=== PATIENT | female | born 1975 | race Two or more races ===

== ENCOUNTER 2021-05-16 11:20 | Emergency (ER) | payer SELFPAY ==
[2021-05-16 11:55] VITALS: BP 154/87; PULSE 76; RESP 18; TEMP 36.2; O2SAT 100; BMI 33.6
--- NOTE | 2021-05-16 12:25 | ED_ITS ---
HPI - General Adult General Chief complaint: General Medical Stated complaint: groin pain Time Seen by Provider: 05/16/21 12:25 Source: patient Mode of arrival: ambulatory Limitations: no limitations History of Present Illness HPI narrative: 46-year-old female presents to the ER with left sided groin pain that started last night at 10pm. She reports getting ready for bed when the pain started. Described as throbbing and aching. None at rest, only with movement or palpation. Denies trauma or injury. She had relief when she held the area tight and supported it. Denies urinary symptoms or abd pain. Reports history of similar pains in the past, dating back to childhood but never lasted long, were only brief episodes. MD complaint: Left-sided groin pain Onset (ago): hour(s) Location: left and lower extremity Radiation: non-radiation Severity: moderate Severity scale (1-10): 6 Quality: aching Pain Consistency: intermittent Relieving factors: immobilization Exacerbating factors: movement Associated symptoms: denies other symptoms Treatments prior to arrival: none Related Data Previous Rx's Medication Instructions Recorded cyclobenzaprine 10 mg tablet 10 mg PO TID PRN #14 tab 05/16/21 lidocaine 5 % topical patch 1 patch TOPICAL DAILY #15 ea 05/16/21 Allergies Allergy/AdvReac Type Severity Reaction Status Date / Time loratadine [From Claritin] AdvReac Palpitation Verified 05/16/21 11:54 s Review of Systems Review of Systems: Constitutional: No Fever, No Chills Cardiovascular: No Chest Pain, No SOB Gastrointestinal: No Nausea, No Vomiting, No Diarrhea, No abdominal Pain Genitourinary: No Dysuria, No Urinary Frequency, No Hematuria Musculoskeletal: No joint pain, +Myalgias Skin: No Skin Lesions, No rash Neuro: No Weakness, No Numbness Psych: No Anxiety/Panic, No Depression Heme/Lymph: No Bruising, No Lymphadenopathy PMFSH Past Medical History Medical History (Updated 05/16/21 @ 12:59 by JUJU Romero) Atrial fibrillation Diabetes mellitus, type 2 Pulmonary embolism Social History Social History Advance Directives: No Advance Directives Information Provided: No Physical Exam ED Vital Signs: Vital Signs - 24 hr 05/16/21 11:55 Temperature 97.1 F Pulse Rate 76 Respiratory Rate 18 Blood Pressure 154/87 H Pulse Oximetry 100 BMI result Body Mass Index 33.6 Appearance: Alert. Oriented X3. No acute distress. HEENT: normal inspection CVS: Normal heart rate and rhythm. Pulses normal. Respiratory: No respiratory distress. Skin: Skin warm and dry. Normal skin color. Normal skin turgor. No rashes. Extremities: normal inspection bilateral LE. Left inguinal area with soft tissue tenderness and spasm proximally. no ecchymosis or deformity. no skin changes. 2+ femoral pulse. no inguinal LAD. Pelvis is stable, nontender hip. Normal active and passive ROM of the left hip. Neuro: Oriented X 3. No motor deficit. No sensory deficit. steady gait Course Course Course Narrative: 46 y/o female presenting with left groin pain since last night, atraumatic, hx similar episodes. Exam is consistent with muscle strain and spasm with palpable tender muscle group proximally. Steady gait and no other conernining symptoms. Will give trial of muscle relaxers, discussed gentle massage and stretching. She will follow up with her PCP or return to the ER if worsening symptoms. Medical Decision Making Lab Data Labs: Lab Results 05/16/21 Range/Units 12:16 Urine Color YELLOW Urine Appearance HAZY Urine pH 7.5 (5.0-8.0) Ur Specific [place] 1.015 (1.005-1.025) Urine Protein NEG (NEG-TRACE) MG/DL Urine Glucose (UA) NEG (NEG) MG/DL Urine Ketones NEG (NEG) MG/DL Urine Blood NEG (NEG) Urine Nitrite NEG (NEG) Ur Leukocyte Esterase NEG (NEG) Discharge Plan Discharge Clinical Impression: Groin pain Patient Disposition: Home, Self-Care Instructions: Groin Pain (ED) Additional Instructions: Your pain is most likely due to muscle strain and spasm. Rest, no strenuous activity. Recommend gentle massage and stretching. Use ice several times per day for 20 minutes at a time for the next 48 hours and then change to heat. Take medications as prescribed to help with pain and discomfort. Follow up with your Primary Care Doctor this week. If your pain worsens, if you develop new numbness, tingling, weakness, or any other concerning symptom call 911 or come back to the ER right away for evaluation. Prescriptions: New cyclobenzaprine 10 mg tablet 10 mg PO TID PRN (Reason: muscle spasm) Qty: 14 0RF lidocaine 5 % adhesive patch,medicated 1 patch topical DAILY Qty: 15 0RF Rx Instructions: leave on most painful area for up to 12 hrs Interventions: ED Discharge Assessment Last Done: 05/16/21 13:12 Discharge Date/Time: 05/16/21 13:12
[2021-05-16 12:31] LABS: Appearance Urine HAZY; Color Urine YELLOW; Glucose Urine UA NEG (NEG); Leukocyte Esterase Urine NEG (NEG); Nitrite Urine NEG (NEG); PH 7.5 (5.0-8.0); Specific Gravity - Urine 1.015 (1.005-1.025); Urine Blood NEG (NEG); Urine Ketones NEG (NEG); Urine Protein NEG (NEG-TRACE)
== END 2021-05-16 13:12 | disposition home or self-care (01) ==
LOC: HO.ED 13:09
PROVIDERS: Emergency Provider Emergency Medicine; PCP Internal Medicine
DX: R10.32 Left lower quadrant pain (principal); I48.91 Unspecified atrial fibrillation; E11.9 Type 2 diabetes mellitus without complications; Z86.711 Personal history of pulmonary embolism
CPT/HCPCS: 81003; 99283; 99284

== ENCOUNTER 2021-05-16 18:19 | Emergency (ER) | payer SELFPAY ==
--- NOTE | ~2021-05-16 | XR_ITS ---
EXAMINATION: XR HIP, LEFT CLINICAL INFORMATION: Left hip/thigh pain. Evaluate for fracture. COMPARISON: None. TECHNIQUE: Two views of the left hip. FINDINGS: No acute fractures or malalignment. Femoral heads are well-seated in their respective acetabula. No significant degenerative changes. Nonobstructive bowel gas pattern. XR/XR hip LT w PEL1V IMPRESSION: No acute fractures or malalignment.
--- NOTE | ~2021-05-16 | US_ITS ---
EXAMINATION: US VENOUS ULTRASOUND WITH DOPPLER LOWER EXTREMITY, LEFT CLINICAL INFORMATION: Left lower extremity pain. On anticoagulants. COMPARISON: None. TECHNIQUE: Ultrasound of the deep veins is performed from the hip to the calf with compression sonography and color and pulse Doppler assessment. Spectral analysis with color-flow imaging is performed. FINDINGS: There is normal venous compression and respiratory variation and augmented flow. The visualized common femoral vein, superficial femoral vein, profunda femoral vein, popliteal vein, and the trifurcation region shows no evidence of deep venous thrombosis. There is no significant popliteal fossa cyst. If the patient's symptoms persist, followup ultrasound in 5 days 7 days might be of value to exclude proximal propagation from a non-visualized calf vein. US/US venous duplex LE LT IMPRESSION: No DVT demonstrated in the left lower extremity.
[2021-05-16 18:23] VITALS: BP 185/92; PULSE 99; RESP 18; TEMP 36.5; O2SAT 96; BMI 33.6
--- NOTE | 2021-05-16 20:53 | ED.GENADULT ---
HPI - General Adult General Chief complaint: General Medical Stated complaint: severe groin pain was here today Time Seen by Provider: 05/16/21 19:19 Source: patient Mode of arrival: ambulatory Limitations: no limitations History of Present Illness HPI narrative: 47-year-old female presents to ED for left hip/thigh pain for couple days. Patient was seen this morning is given pain medication return to ED could she still having the pain. Denies any trauma to left lower extremity, swelling, redness, or over exertion. Patient denies lifting any weights, or running any miles. Patient does not exercise. Patient denies any abdominal pain, vaginal bleeding, vaginal discharge, or flank pain. Related Data Previous Rx's Medication Instructions Recorded cyclobenzaprine 10 mg tablet 10 mg PO TID PRN #14 tab 05/16/21 lidocaine 5 % topical patch 1 patch TOPICAL DAILY #15 ea 05/16/21 naproxen 500 mg tablet 500 mg PO BID PRN 10 Days #20 tab 05/16/21 Allergies Allergy/AdvReac Type Severity Reaction Status Date / Time loratadine [From Claritin] AdvReac Palpitation Verified 05/16/21 11:54 s Review of Systems Review of Systems: Left hip left upper thigh pain Yes all other systems are reviewed and are negative [facility] Past Medical History Medical History (Updated 05/16/21 @ 21:28 by JUJU Santana) Atrial fibrillation Diabetes mellitus, type 2 Pulmonary embolism Social History Social History Advance Directives: No Advance Directives Information Provided: No Physical Exam ED Vital Signs: Vital Signs - 24 hr 05/16/21 18:23 Temperature 97.7 F Pulse Rate 99 Respiratory Rate 18 Blood Pressure 185/92 H Pulse Oximetry 96 BMI result Body Mass Index 33.6 Const General: cooperative, healthy appearing, comfortable, no acute distress, well developed, alert, awake and Physically active Orientation/consciousness: patient oriented x3 HENMT Head: Yes normal to inspection, Yes No palpable skull fracture present, Yes normocephalic and Yes atraumatic Eyes General: appearance normal, both eyes and all related structures Neck Neck: Yes normal visual inspection, Yes full ROM, Yes no lymphadenopathy, Yes no meningeal signs, Yes trachea midline, Yes supple, No anterior neck swelling and No tender Chest Chest palpation & inspection: normal inspection of the chest and normal palpation of entire chest wall Resp Effort & Inspection: normal respiratory effort and able to speak in complete sentences Auscultation: clear to auscultation bilaterally Cardio Jugular venous distension: no JVD Heart sounds: S1 normal heart sound present and S2 normal heart sound present GI Inspection: Yes normal to inspection and No abdominal wall ecchymosis Palpation (GI): Soft to palpation, not firm, nontender, no guarding and not rigid General: No CVA tenderness and Yes no CVA tenderness Back/Spine/Pelvis Back: no CVA tenderness, No CVA tenderness and No back tenderness Skin General skin exam: no rashes or lesions noted and elasticity normal Neuro General: patient oriented x3, gait normal, no meningeal signs and CN's II-XI intact bilaterally Cranial nerves: Yes CN's II-XII intact bilaterally Extrem Upper/lower leg/hip images: 1. Positive for tenderness on palpation. Negative for erythema, palpable mass, ecchymosis, or crepitus. Femoral and pedal pulses intact. Motor/nerve/vascular exam intact of lower extremity intact Psych Appearance: grossly normal, well kempt and not disheveled Course Course Course Narrative: Due to sign tenderness on palpation was sent for ultrasound to make sure does need DVT. Was sent for x-rays rule out fracture. Reevaluation(s) Reevaluation #1: Images came back negative for fracture or DVT. Not suspecting rhabdomyolysis. Patient did not do any over exertion such as running a marathon, lifting weights, or treadmill running. Patient does not exercise and has no risk factors for rhabdomyolysis. Patient informed to continue taking meds she was prescribed earlier visit today in the ER Time: 21:26 Medical Decision Making MDM Narrative Medical decision making narrative: Thigh pain. Muscle pain Discharge Plan Discharge Clinical Impression: Acute pain of left thigh Patient Disposition: Home, Self-Care Instructions: Musculoskeletal Pain (ED) Additional Instructions: Return to ED for worsening pain, thigh/leg swelling, redness, fever, chills, calf pain, chest pain, shortness of breath, or any other concerning symptoms. Please follow-up primary care provider Prescriptions: New naproxen 500 mg tablet 500 mg PO BID PRN (Reason: pain) 10 Days Qty: 20 0RF No Action cyclobenzaprine 10 mg tablet 10 mg PO TID PRN (Reason: muscle spasm) Qty: 14 0RF lidocaine 5 % adhesive patch,medicated 1 patch topical DAILY Qty: 15 0RF Rx Instructions: leave on most painful area for up to 12 hrs Interventions: ED Discharge Assessment Last Done: 05/16/21 21:54 Discharge Date/Time: 05/16/21 21:55 Print Language: Occitan
== END 2021-05-16 21:55 | disposition home or self-care (01) ==
PROVIDERS: Emergency Provider Internal Medicine; PCP Internal Medicine
DX: M79.652 Pain in left thigh (principal); E11.9 Type 2 diabetes mellitus without complications; I48.91 Unspecified atrial fibrillation; Z86.711 Personal history of pulmonary embolism
CPT/HCPCS: 73502; 93971; 99283; 99284

== ENCOUNTER 2023-10-26 07:19 | Outpatient (AMB) | payer OTHER, SELFPAY ==
--- NOTE | 2023-10-26 07:34 | MHC.OFFVIS ---
Vital Signs 10/26/23 07:49 Height 5 ft 3 in Weight 203 lb BMI 36.0 BP 141/64 H Blood Pressure Location Lt brachial Position Sitting Pulse 66 Intake Visit Reasons: GERD/ +H pylori Intake Note: Patient new consult for GERD and + H-pylori. Patient cc: abdominal pain with bloating, nauseas, GERD with burning sensation, no possessing the food, constipation. Patient is established with [facility] and have a Colonoscopy s/c for January ??? Acquisition Consultant Required: No Accompanied by: Self / Same As Patient Allergies loratadine [From Claritin] Adverse Reaction (Verified 10/26/23 07:30) Palpitations Medication List - Last Reconciled 10/26/23 by Minal Hansen MD apixaban (Eliquis) 5 mg PO BID atorvastatin 20 mg PO DAILY omeprazole 40 mg PO DAILY sucralfate (Carafate) 1 g PO QIDACHS valsartan 80 mg PO DAILY HPI HPI GERD/ +H pylori: Details: Initial GI clinic visit for this 57 YF with GERD. asthma, DM, HTN, chronic AF (On Apixaban), Migraine HAs and sleep apnea referred by Dr Villa ([facility], [facility]) for evaluation of GERD LABS IN [facility] : Labs from [facility] were reviewed 10/30/22 H Pylori antigen was positive 12/29/22 H Pylori antigen was negative post treatment IMAGING STUDIES: 12/24/22 BARIUM SWALLOW SHOWED AT [facility]: No laryngeal penetration or tracheal aspiration, normal oral and pharyngeal phase. Mild esophageal dysmotility with tertiary contractions and proximal escape of the ingested bolus. A 13 mm barium tablet passes easily into the stomach. Mild unprovoked gastroesophageal reflux to the mid esophagus. TODAY'S VISIT: Patient complains of intermittent upper abdominal pain/bad discomfort with burning all over the abdomen. Pain is daily and can have pain after eating or drinking water or on an empty stomach Symptoms are worse with coffee, fried foods, bread and chocolate. Sticking to one food item at a time - berries and eggs Gets bloated and complains of early satiety. feels bloated the entire day if she has coffee Complains of chronic constipation - went to [facility] 10/2022 - had a mild blockage Placed on Senna, metamucil Goes to the bathroom every 2-3 days associated with straining and incompete evacuation. Constipation started after she had H Pylori infection. Repeat H Pylori was added and pt unable to stop Omeprazole for 2 weeks Carafate has helped a little bit with the burning sensation. Denies heartburn or regurgitation Sometimes she has hoarseness and feels she needs to cough. Pt complains of frequent nausea and denies symptoms of dysphagia, vomiting, change in appetite. Initially weighed > 300 lbs and was able to loose by going on a keto diet. Was able to discontinue diabetic medications Gained 13 lbs over the last year and was able to loose 6-7 lbs Has been walking a lot and goes to the Gym 4 times a week Denies recent diarrhea, black stools or rectal bleeding. Patient denies pulmonary problems, loud snoring or sleep apnea Denies problems with anesthesia in the past. On chronic anticoagulation for AF. Pt at [facility] Lives with - has 3 kids Patient denies known family history of colon cancer or other GI malignancies. Mom had polyps and son had bleeding ulcers PAST EGD/COLONOSCOPY: Never had EGD or colon PAST GI HISTORY BY REVIEW OF MEDICAL RECORDS: Pt seen by PCP in Jul, 2023 for 3 month history of abdominal bloating, burning with bulge 11/09/2022 patient was diagnosed with Helicobacter pylori infection, treated and follow-up stool test was negative. Patient was seen by GI and at [facility] scheduled for a colonoscopy in 02/10/2024 Pt is taking Omeprazole 80 mg daily for GERD without improvement in symptoms Pt is on Eliquis for chronic AF PFSH Medical History (Updated 10/26/23 @ 08:28 by Minal Hansen MD) Pulmonary embolism Diabetes mellitus, type 2 Atrial fibrillation Surgical History Hx of tubal ligation Social History (Updated 10/26/23 @ 07:36 by Ada Cano) Household Members: Family Alcohol intake: never Patient Tobacco Use Status: Never used Tobacco Review of Systems Const Denies fever(s), Reports headache(s) and Denies weight loss Eyes Denies eye discharge and Denies irritation ENT Reports Normal hearing present, Denies dysphagia, Denies dizziness, Reports headache(s) and Reports hoarseness Card Denies chest pain, Denies leg edema and Denies dyspnea on exertion Resp Denies cough, Denies dyspnea on exertion and Denies wheezing GI Reports abdominal pain, Reports bloating, Denies change in bowel habits, Reports constipation, Denies dysphagia, Reports early satiety, Reports heartburn, Reports nausea and Reports other (loss of appetite) Denies difficulty voiding, Denies dysuria and Reports other (LMP 10/2022) Musc Denies back pain and Denies arthralgias Skin/Breast Denies pruritus, Denies rash and Denies jaundice Neuro Reports Normal hearing present, Denies Abnormal speech present, Denies dizziness, Reports headache(s) and Denies seizure-like activity Psych Reports anxiety, Reports depression and Denies panic attacks Endo Denies cold intolerance, Denies flushing and Denies heat intolerance Wilbert/Lymph Denies easy bleeding and Denies easy bruising Aller/Immun Denies wheezing Physical Exam Vital Signs: Last Vital Signs Pulse 66 10/26/23 07:49 BP 141/64 H 10/26/23 07:49 BMI result Body Mass Index 36.0 Const General: healthy appearing and no acute distress Nutritional Appearance: obese Orientation/consciousness: patient oriented x3 Limitations: no limitations HEENT Head: Yes normal to inspection Ears: hearing grossly normal bilaterally Eyes Sclerae: sclerae normal Pupils: Equal, round and reactive pupils present Neck Neck: Yes normal visual inspection Chest Chest palpation & inspection: normal inspection of the chest Resp Effort & Inspection: normal respiratory effort Auscultation: clear to auscultation bilaterally Cardio Palpation: normal PMI Rate: regular rate Rhythm: regular rhythm Heart sounds: S1 normal heart sound present, S2 normal heart sound present and no murmurs GI Palpation (GI): Soft to palpation, nontender, No hepatosplenomegaly present and Other GI palpation findings present (palpable stool in LLQ) Auscultation: normal bowel sounds Rectal Exam - Female: deferred Skin General skin exam: no rashes or lesions noted Neuro General: patient oriented x3, gait normal and moves all extremities Cranial nerves: Yes Equal, round and reactive pupils present and Yes Normal hearing present Speech: No Abnormal speech present Psych Appearance: grossly normal Mental Status: mental status grossly normal Assessment & Plan Assessment & Plan (1) Upper abdominal pain: Code(s): R10.10 - Upper abdominal pain, unspecified Category: Medical (2) Early satiety: Code(s): R68.81 - Early satiety Category: Medical (3) Chronic constipation: Code(s): K59.09 - Other constipation Category: Medical Plan GI clinic visit for this 57 YF with GERD. asthma, DM, HTN, chronic AF (On Apixaban), Migraine HAs and sleep apnea referred by Dr Villa ([facility], [facility]) for evaluation of GERD and to schedule a screening colonoscopy Pt complains of abdominal pain, early satiety, bloating, constipation and recent weight gain. Symptoms are likely due to gastroparesis (was diabetic for 10-11 years prior to loosing weight) and slow transit constipation/constipation predominant IBS. Pt may have small bowel bacterial overgrowth or celiac disease. She was advised to schedule a gastric emptying study, an upper endoscopy and a colonoscopy. Start Linzess 145 mcg daily for constipation FU in 6 weeks Orders: Orders NM gastric emptying study 10/26/23 K59.09 - Other constipation, R10.10 - Upper abdominal pain, unspecified, R68.81 - Early satiety XR KUB 10/27/23 K59.09 - Other constipation Blood Urea Nitrogen 10/27/23 K59.09 - Other constipation, R10.10 - Upper abdominal pain, unspecified, R68.81 - Early satiety TSH reflex Free T4 10/27/23 K59.09 - Other constipation, R10.10 - Upper abdominal pain, unspecified, R68.81 - Early satiety Creatinine 10/27/23 K59.09 - Other constipation, R10.10 - Upper abdominal pain, unspecified, R68.81 - Early satiety Vitamin D 25-OH Total 10/27/23 K59.09 - Other constipation, R10.10 - Upper abdominal pain, unspecified, R68.81 - Early satiety Immunoglobulin A 10/27/23 K59.09 - Other constipation, R10.10 - Upper abdominal pain, unspecified, R68.81 - Early satiety Lipase 10/27/23 K59.09 - Other constipation, R10.10 - Upper abdominal pain, unspecified, R68.81 - Early satiety Transglutaminase IgA 10/27/23 K59.09 - Other constipation, R10.10 - Upper abdominal pain, unspecified, R68.81 - Early satiety Transglutaminase Ab IgG 10/27/23 K59.09 - Other constipation, R10.10 - Upper abdominal pain, unspecified, R68.81 - Early satiety Medications: New linaclotide (Linzess) 145 mcg PO QAM 30 caps 3RF 30 days K59.09 - Other constipation Coding Level of Care Code New Pt Level 4 (75960) Diagnoses Upper abdominal pain R10.10 Early satiety R68.81 Chronic constipation K59.09 Time Spent (min) 35
[2023-10-26 07:49] VITALS: BP 141/64; PULSE 66; BMI 36.0
== END 2023-10-26 08:57 | disposition home or self-care (01) ==
PROVIDERS: PCP Internal Medicine; Visit Provider Internal Medicine Gastroenterology
DX: R10.10 Upper abdominal pain, unspecified (principal); R68.81 Early satiety; K59.09 Other constipation
CPT/HCPCS: 99204

== ENCOUNTER → 2023-10-26 07:19 | Outpatient (BNVA) | payer OTHER, SELFPAY | PROVIDERS: PCP Internal Medicine; Visit Provider Internal Medicine Gastroenterology ==

== ENCOUNTER 2023-10-27 06:15 | Outpatient (REF) | payer OTHER, SELFPAY ==
--- NOTE | ~2023-10-27 | XR_ITS ---
EXAMINATION: XR ABDOMEN KUB CLINICAL INDICATION: Rule out obstipation COMPARISON: None available. TECHNIQUE: AP view of the abdomen. FINDINGS: Moderate fecal retention. Air is seen in the rectum. Solid visceral outlines are obscured. No suspicious calcifications. Lung bases are not included. Mild symmetric bilateral inferior SI sclerosis. Sacralization lowest lumbar type vertebral body, spina bifida occulta and degenerative changes XR/XR KUB IMPRESSION: Moderate fecal retention. Electronically signed by: Rafaela Medina MD 11/24/2023 10:00 AM EDT
[2023-10-27 07:52] LABS: Blood Urea Nitrogen 20 mg/dL (9-16); Estimated Glomerular Filt Rate > 60; Lipase 9 U/L (8-78)
[2023-10-27 08:08] LABS: TSH reflex Free T4 1.87 uIU/mL (0.32-4.0)
[2023-10-28 09:38] LABS: Immunoglobulin A 163 mg/dL (47-310)
[2023-10-30 13:03] LABS: Transglutaminase Ab IgG <1.0 U/mL; Transglutaminase IgA <1.0 U/mL
== END 2023-10-27 06:16 | disposition home or self-care (01) ==
LOC: HO.XRAY 06:15
PROVIDERS: PCP Internal Medicine; Visit Provider Internal Medicine Gastroenterology
DX: K59.09 Other constipation (principal); R68.81 Early satiety; R10.10 Upper abdominal pain, unspecified
CPT/HCPCS: 36415; 74018; 82306; 82565; 82784; 83690; 84443; 84520; 86364

== ENCOUNTER 2023-11-17 06:06 | Emergency (ER) | payer OTHER, SELFPAY ==
--- NOTE | ~2023-11-17 | XR_ITS ---
EXAMINATION: XR RIBS, LEFT CLINICAL INFORMATION: Left upper rib pain COMPARISON: None available. TECHNIQUE: A single view of the chest and 3 views of the left ribs were obtained. A metallic BB was placed over the site of pain. FINDINGS: Lungs are clear. A loop recorder is present. No consolidation, pneumothorax, or pleural effusion. The cardiomediastinal silhouette and pulmonary vasculature are normal. Osseous structures are unremarkable. Ribs are intact. No fractures are identified. XR/XR ribs LT min 3V w CXR1V IMPRESSION: Unremarkable examination. Electronically signed by: Marcelo Lowery MD 11/17/2023 10:01 AM EDT
[2023-11-17 06:31] VITALS: BP 167/83; PULSE 71; RESP 19; TEMP 36.7; O2SAT 98
[2023-11-17 06:32] VITALS: BP 167/83; PULSE 71; RESP 19; TEMP 36.7; O2SAT 98; BMI 36.3
--- NOTE | 2023-11-17 06:42 | PC.NURSE ---
Pt ca&ox4, no signs of distress. Pt reports 6/10 left rib pain. Pt reports her hugged her and picked her up last and she heard a pop and since then has been having pain intermittently Tender to palpation. Plan of care ongoing.
--- NOTE | 2023-11-17 08:07 | PC.NURSE ---
pt to xray at this time.
[2023-11-17] MEDS: Cyclobenzaprine HCl 10 MG TABLET PO (08:18)
--- NOTE | 2023-11-17 08:20 | PC.NURSE ---
pt medicated per provider order. effectiveness pending. pt waiting for chest xray results at this time. no sob/wob noted. respirations even/unlabored. plan of care ongoing.
[2023-11-17 08:27] VITALS: BP 146/83; PULSE 69; RESP 16; TEMP 36.3; O2SAT 99
[2023-11-17 08:31] LABS: MANUAL DIFF FLAG NO
[2023-11-17 08:33] LABS: Basophils Percent Auto 0.7 % (0-2); Eosinophils Absolute Auto 0.1 X10*3/uL (0.0-0.4); Eosinophils Percent Auto 2.6 % (0-4); Hematocrit 42.3 % (37.0-47.0); Hemoglobin 14.5 g/dl (12.0-16.0); Imm Gran Abs Auto 0.01 X10*3/uL (0.00-0.03); Imm Gran Pct Auto 0.2 % (0.0-0.4); Lymphocytes Absolute Auto 1.1 X10*3/uL (1.2-4.9); Lymphocytes Percent Auto 19.7 % (20-40); Mean Corpuscular HGB Conc 34.3 g/dl (31.0-35.0); Mean Corpuscular Hemoglobin 29.3 pg (27.0-33.0); Mean Corpuscular Volume 85.5 fL (80.0-98.0); Mean Platelet Volume 9.8 fL (9.4-12.3); Monocytes Absolute Auto 0.3 X10*3/uL (0.1-1.2); Monocytes Percent Auto 4.8 % (2-11); Neutrophils Absolute Auto 3.9 x10*3/uL (2.0-8.3); Platelet Count 261 X10*3/uL (160-400); Red Blood Count 4.95 X10*6/uL (4.20-5.50); Red Cell Distribution Width 11.9 % (11.0-16.0); White Blood Count 5.4 X10*3/uL (4.8-10.8)
[2023-11-17 08:48] LABS: Alanine Aminotransferase 10 U/L (0-31); Albumin Level 4.3 g/dL (3.5-5.0); Alkaline Phosphatase 67 U/L (39-117); Anion Gap 11 (12-20); Aspartate Amino Transferase 20 U/L (5-31); Bilirubin Direct 0.2 mg/dL (0.0-0.5); Bilirubin Total 0.5 mg/dL (0.0-1.0); Blood Urea Nitrogen 20 mg/dL (9-16); Calcium 9.9 mg/dL (8.4-10.2); Carbon Dioxide 26 mmol/L (22-29); Chloride 108 mmol/L (96-108); Creatinine Clr Calc Pharmacy 88.9; Estimated Glomerular Filt Rate > 60; Glucose Random 100 mg/dL (60-115); Lipase 10 U/L (8-78); Potassium 4.4 mmol/L (3.3-5.1); Sodium 141 mmol/L (135-145); Total Protein 7.3 g/dL (6.5-8.0)
--- NOTE | 2023-11-17 10:33 | ED_ITS ---
HPI - General Adult General Chief complaint: General Medical Stated complaint: muscle tear Time Seen by Provider: 11/17/23 07:43 Source: patient, RN notes reviewed and old records reviewed Mode of arrival: ambulatory History of Present Illness ED Provider: Kristen Arredondo PA-C HPI narrative: 48-year-old female with a past medical history of AFib, PE on Eliquis, diabetes, presenting to the ED complaining of intermittent left lower rib pain s/p bear hugging her 5 days ago. States he picked her up and squeeze turn she immediately felt pain to the left lower ribs/LUQ. Denies direct injury, trauma or fall. Reports pain is elicited w/certain positions, stabbing, reproducible. Denies chest pain, shortness of breath, abdominal pain, nausea/vomiting, pedal edema, hematuria, dysuria. Reports some compliance with Eliquis. Related Data Home Medications ?Medication ?Instructions ?Recorded ?Confirmed apixaban 5 mg tablet (Eliquis) 5 mg PO BID 10/26/23 10/26/23 atorvastatin 20 mg tablet 20 mg PO DAILY 10/26/23 10/26/23 omeprazole 40 mg capsule,delayed 40 mg PO DAILY 10/26/23 10/26/23 release sucralfate 1 gram tablet (Carafate) 1 g PO QIDACHS 10/26/23 10/26/23 valsartan 80 mg tablet 80 mg PO DAILY 10/26/23 10/26/23 Previous Rx's ?Medication ?Instructions ?Recorded linaclotide 145 mcg capsule 145 mcg PO QAM 30 days #30 caps 10/26/23 (Linzess) acetaminophen 500 mg tablet 500 mg PO Q6H PRN fever or pain 11/17/23 (Tylenol Extra Strength) #14 tabs cyclobenzaprine 5 mg tablet 5 mg PO Q8H PRN pain (scale score 11/17/23 7-10) 5 days #14 tabs lidocaine 5 % topical patch 1 patch topical DAILY PRN pain #30 11/17/23 (Lidoderm) ea Allergies Allergy/AdvReac Type Severity Reaction Status Date / Time loratadine [From Claritin] AdvReac Palpitation Verified 11/17/23 06:40 s Review of Systems 2 Review of Systems: Constitutional: No Fever, No Chills ENT/Mouth: No Ear Pain, No Nasal Congestion, No sore throat, No Rhinorrhea, No Swallowing Difficulty Cardiovascular: +rib Pain, No SOB Respiratory: No Cough, No Sputum, No Wheezing Gastrointestinal: No Nausea, No Vomiting, No Diarrhea, No Abdominal pain Genitourinary: No Dysuria, No Urinary Frequency, No Hematuria, No Urinary Incontinence/retention, No Flank Pain Musculoskeletal: No joint pain, No Myalgias, No Joint Swelling Skin: No Skin Lesions, No rash Neuro: No Weakness, No Numbness, No Paresthesias Yes all other systems are reviewed and are negative Constitutional: Constitutional: Reports as per [facility] Past Medical History Attestation statement: The following information was validated with the patient. Source: old records reviewed Medical History Pulmonary embolism Diabetes mellitus, type 2 Atrial fibrillation Surgical History Hx of tubal ligation Social History Social History Household Members: Family Alcohol intake: never Patient Tobacco Use Status: Never used Tobacco Smoked in Last 30 Days: No Use of substances other than those prescribed or required for medical reasons: No Advance Directives: No Advance Directives Information Provided: Yes Do you have a plan to hurt others: No Plan Patient : No Physical Exam ED Vital Signs: Vital Signs - 24 hr 11/17/23 06:31 11/17/23 06:32 11/17/23 08:27 Temperature 98.1 F 98.1 F 97.4 F Pulse Rate 71 71 69 Respiratory Rate 19 19 16 Blood Pressure 167/83 H 167/83 H 146/83 H Pulse Oximetry 98 98 99 Oxygen Delivery Method Room Air Room Air Room Air 11/17/23 10:39 Temperature Pulse Rate 78 Respiratory Rate 16 Blood Pressure 140/74 H Pulse Oximetry 98 Oxygen Delivery Method Room Air BMI result Body Mass Index 36.3 Const General: cooperative, healthy appearing and no acute distress Orientation/consciousness: patient oriented x3 Limitations: no limitations HENMT Head: Yes normal to inspection and Yes atraumatic Ears: hearing grossly normal bilaterally General nose exam: Normal external nose present Face and sinus: Yes normal facial exam Eyes General: appearance normal, both eyes and all related structures EOM: EOMs intact bilaterally Neck Neck: Yes normal visual inspection and Yes no meningeal signs Chest Other: No ecchymosis/erythema or flail chest Chest palpation & inspection: normal inspection of the chest, no crepitus and tenderness (Point tenderness to left anterior lateral rib) Resp Effort & Inspection: normal respiratory effort and no respiratory distress Auscultation: clear to auscultation bilaterally, no crackles, no rales, no rhonchi and no wheezes Cardio Rate: regular rate Heart sounds: S1 normal heart sound present and S2 normal heart sound present GI Inspection: Yes normal to inspection Palpation (GI): Soft to palpation, nontender, no guarding and not rigid General: Yes no CVA tenderness Back/Spine/Pelvis Back: no CVA tenderness Skin Rashes: no rashes Wounds: no wounds Neuro General: patient oriented x3, tone normal and no meningeal signs Cranial nerves: Yes CN's II-XII intact bilaterally Gait exam (Neuro): Normal gait present Extrem General: Yes normal to inspection, Yes no pedal edema and Yes no calf tenderness Course Course Course Narrative: -labs reassuring XR ribs LT min 3V w CXR1V IMPRESSION: Unremarkable examination. > patient reports mild symptomatic improvement after p.o. Flexeril given in the ED. - Results discussed with patient including worrisome signs and symptoms and strict return precautions, and when to return to the emergency department. They verbalized understanding and feel safe for discharge at this time. Medications Administered Discontinued Medications Generic Name Dose Route Start Last Admin Trade Name Freq PRN Reason Stop Dose Admin Cyclobenzaprine HCl 10 mg 11/17/23 07:59 11/17/23 08:18 Cyclobenzaprine Hcl 10 Mg Tablet PO 11/17/23 08:00 10 mg ONCE ONE Administration Medical Decision Making Medical Decision Making MDM Narrative: 48-year-old female with a past medical history of AFib, PE on Eliquis, diabetes, presenting to the ED complaining of intermittent left lower rib pain s/p bear hugging her 5 days ago. On exam vital signs stable, NAD, nontoxic appearing, point tenderness to left lower anterior lateral ribs reproducing subjective complaint. No evidence of trauma. Abdomen soft and nontender. Concern for costochondritis vs rib fracture vs MSK pain/strain. Lower suspicion for pancreatitis, splenic injury, renal stone, PE as patient is anticoagulated. Symptoms atypical for ACS Plan: labs, x-ray, pain control Please refer to course for remaining clinical decision making, interpretation of labs/imaging results, and discussions with consultants and/or family members. Differential Diagnosis Differential Diagnoses: The differential diagnosis associated with the presentation includes As above Admission/Observation Consideration of admission/observation: Escalation of care including admission/observation considered Lab Data MDM Lab Attestation statement: I reviewed the patient's lab results. 11/17/23 08:24 11/17/23 08:24 Labs: Lab Results 11/17/23 Range/Units 08:24 WBC 5.4 (4.8-10.8) X10*3/uL RBC 4.95 (4.20-5.50) X10*6/uL Hgb 14.5 (12.0-16.0) g/dl Hct 42.3 (37.0-47.0) % MCV 85.5 (80.0-98.0) fL MCH 29.3 (27.0-33.0) pg MCHC 34.3 (31.0-35.0) g/dl RDW 11.9 (11.0-16.0) % Plt Count 261 (160-400) X10*3/uL MPV 9.8 (9.4-12.3) fL Immature Gran % (Auto) 0.2 (0.0-0.4) % Neut % (Auto) 72.0 (45-73) % Lymph % (Auto) 19.7 L (20-40) % [place] % (Auto) 4.8 (2-11) % Eos % (Auto) 2.6 (0-4) % Baso % (Auto) 0.7 (0-2) % Lymph # (Auto) 1.1 L (1.2-4.9) X10*3/uL [place] # (Auto) 0.3 (0.1-1.2) X10*3/uL Eos # (Auto) 0.1 (0.0-0.4) X10*3/uL Baso # (Auto) 0.0 (0.0-0.2) X10*3/uL Abs Immat Gran (auto) 0.01 (0.00-0.03) X10*3/uL Absolute Neuts (auto) 3.9 (2.0-8.3) x10*3/uL Absolute Nucleated RBC 0.000 (0.0-0.012) X10*3/uL Nucleated RBC % (auto) 0.0 (0.0-0.2) /100WBC Sodium 141 (135-145) mmol/L Potassium 4.4 (3.3-5.1) mmol/L Chloride 108 (96-108) mmol/L Carbon Dioxide 26 (22-29) mmol/L Anion Gap 11 L (12-20) BUN 20 H (9-16) mg/dL Creatinine 0.82 (0.5-1.4) mg/dL Estim Creat Clear Calc 88.9 Estimated GFR > 60 Random Glucose 100 (60-115) mg/dL Calcium 9.9 (8.4-10.2) mg/dL Total Bilirubin 0.5 (0.0-1.0) mg/dL Direct Bilirubin 0.2 (0.0-0.5) mg/dL AST 20 (5-31) U/L ALT 10 (0-31) U/L Alkaline Phosphatase 67 (39-117) U/L Total Protein 7.3 (6.5-8.0) g/dL Albumin 4.3 (3.5-5.0) g/dL Lipase 10 (8-78) U/L Independent Interpretation I performed an independent interpretation of an: Plain X-Ray Radiology Impression Discussion of test interpretation with radiology: I have reviewed the radiologist's reading. External Record Review External record reviewed: Inpatient record, Office record, Outpatient record, Prior outpatient labs, Prior outpatient radiology, Primary care record and Outside ED record Tests considered The following testing was considered but not selected: As above Prescription Management I considered prescription management with: Pain Medication Discharge Plan Discharge Clinical Impression: Rib pain on left side Patient Disposition: Home, Self-Care Instructions: Chest Pain (DC) Additional Instructions: Your blood work and x-ray were reassuring Your pain is likely musculoskeletal Flexeril is a muscle relaxer, take at night as it makes you drowsy, do not drive, drink alcohol, or operate machinery while taking it Lidoderm patches are numbing patches, apply to painful area In addition take Tylenol at home If symptoms persist or worsen, pain becomes unbearable, you developed urinary retention or incontinence, or weakness return to the ED Prescriptions: New acetaminophen [Tylenol Extra Strength] 500 mg tablet 500 mg PO Q6H PRN (Reason: fever or pain) Qty: 14 0RF lidocaine [Lidoderm] 5 % adhesive patch,medicated 1 patch topical DAILY MDD remove after 12 hours PRN (Reason: pain) Qty: 30 0RF Rx Instructions: leave on most painful area for up to 12 hrs cyclobenzaprine 5 mg tablet 5 mg PO Q8H PRN (Reason: pain (scale score 7-10)) 5 Days Qty: 14 0RF No Action Eliquis 5 mg tablet 5 mg PO BID valsartan 80 mg tablet 80 mg PO DAILY atorvastatin 20 mg tablet 20 mg PO DAILY omeprazole 40 mg capsule,delayed release(DR/EC) 40 mg PO DAILY sucralfate [Carafate] 1 gram tablet 1 g PO QIDACHS Linzess 145 mcg capsule 145 mcg PO QAM 30 Days Qty: 30 3RF Referrals: Brenda Dubois MD [Primary Care Provider] - 5 days Print Language: Sri Lankan
[2023-11-17 10:39] VITALS: BP 140/74; PULSE 78; RESP 16; O2SAT 98
[2023-11-17 10:56] VITALS: BP 140/74; PULSE 78; RESP 16; TEMP 36.8; O2SAT 98
== END 2023-11-17 10:57 | disposition home or self-care (01) ==
PROVIDERS: Physician Assistant; Emergency Provider Emergency Medicine Emergency Medical Services; PCP Student in an Organized Health Care Education/Training Program
DX: R07.81 Pleurodynia (principal); Z79.899 Other long term (current) drug therapy
CPT/HCPCS: 36415; 71101; 80048; 80076; 83690; 85025; 99283; 99284

== ENCOUNTER → 2023-12-15 07:51 | Outpatient (REF) | payer OTHER, SELFPAY ==
--- NOTE | ~2023-12-15 | NM_ITS ---
EXAMINATION: RADIONUCLIDE SOLID FOOD GASTRIC EMPTYING 4-HOUR STUDY CLINICAL INFORMATION: Upper abdominal pain. COMPARISON: No previous gastric emptying study is available for comparison. TECHNIQUE: A standard meal consisting of 4 oz of Egg Beaters brand equivalent tagged with 900 microcuries Tc-99m Sulfur Colloid, 8 oz water and 2 slices of toast with jelly was administered orally to the patient. Images were obtained using a dual head gamma camera in the anterior and posterior projections over of the stomach immediately post ingestion and at hourly intervals up to 4 hours post ingestion. The anterior and posterior counts at each time interval were averaged using the geometric mean and expressed as percentage of the immediate post ingestion counts. FINDINGS: There is good visualization of activity in the stomach immediately post ingestion. As the study progresses, there is good clearance of activity from the stomach and visualization of progressively increasing small bowel activity. By the end of the study, there is almost no retention noted in the stomach. Retention in the stomach at each time interval was: 1 hour 83% (normal 37%-90%) 2 hours 25% (normal 30%-60%) 3 hours 5% 4 hours 2% (normal 0%-10%) NM/NM gastric emptying study IMPRESSION: Normal 4-hour solid food gastric emptying study. Gastric emptying study grading per JNMT Consensus Recommendations in 2008: https://tech.snmjournals.org/content/36//44 Grade 1 (mild retention): 11-20% at 4 hours Grade 2 (moderate retention): 21-35% at 4 hours Grade 3 (severe retention): 36-50% at 4 hours Grade 4 (very severe retention): >50% retention at 4 hours Electronically signed by: Mina Streeter MD 12/16/2023 09:30 AM EDT
== END ==
LOC: HO.NUCMED 07:51
PROVIDERS: PCP Student in an Organized Health Care Education/Training Program; Visit Provider Internal Medicine Gastroenterology
DX: R10.10 Upper abdominal pain, unspecified (principal); R68.81 Early satiety; K59.09 Other constipation
CPT/HCPCS: 78264; A9541

== ENCOUNTER 2024-04-06 07:03 | Outpatient (REF) | payer OTHER, SELFPAY ==
--- NOTE | ~2024-04-06 | XR_ITS ---
CLINICAL HISTORY: K59.09 - Other constipation 1 view abdomen Comparison: CR/SR - XR KUB - 10/27/23 07:06 EDT Findings: No pneumoperitoneum or pneumatosis. No abnormal calcifications. Formed fecal material most concentrated in the ascending colon. Small rectosigmoid fecal load. Overall small to moderate fecal load. No acute fractures. IMPRESSION: The bowel gas pattern is normal. Small to moderate fecal load predominantly within the ascending colon. This document has been electronically signed by: Kera Lai MD on 04/07/2024 05:06:43
== END 2024-04-06 07:04 | disposition home or self-care (01) ==
LOC: HO.XRAY 07:03
PROVIDERS: PCP Internal Medicine; Visit Provider Internal Medicine Gastroenterology
DX: K59.09 Other constipation (principal); R19.7 Diarrhea, unspecified
CPT/HCPCS: 74018

== ENCOUNTER → 2024-04-06 07:07 | Outpatient (BNV) | payer OTHER, SELFPAY | PROVIDERS: PCP Internal Medicine; Visit Provider Radiology Diagnostic Radiology | DX: K59.09 Other constipation (principal) | CPT/HCPCS: 74018 ==

== ENCOUNTER 2024-05-24 07:16 | Outpatient (AMB) | payer OTHER, SELFPAY ==
--- NOTE | 2024-05-24 07:19 | A.OFFVIS_ITS ---
Vital Signs 05/24/24 07:22 Height 5 ft 3 in Weight 201 lb BMI 35.6 BP 104/55 L Blood Pressure Location Lt brachial Position Sitting Pulse 121 H Intake Visit Reasons: s/p double results Intake Note: Patient post op follow up for s/p double and lab/KUB results. Patient cc: nauseas in the morning, patient is taking probiotic and that helping her with bloating and constipation, patient feeling an extrange feeling on her throat with acid reflex. Patient wanted to switch Omeprazole. 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 asthma, DM, HTN, chronic AF (On Apixaban), Migraine HAs and sleep apnea referred by Dr Villa ([facility]) for evaluation of GERD TODAY'S VISIT: Patient cc: nauseas in the morning, patient is taking probiotic and that helping her with bloating and constipation, patient feeling an strange feeling on her throat with acid reflex. Patient wanted to switch Omeprazole. Feeling a little better - switched a few things Constipation is better - taking probiotics and not taking any laxatives Probiotics are helping with the bloating as well. Taking Omeprazole 40 mg twice a day and does not feel its helping - wants to try something else PAST VISITS: Patient complains of intermittent upper abdominal pain/bad discomfort with burning all over the abdomen. Pain is daily and can have pain after eating or drinking water or on an empty stomach Symptoms are worse with coffee, fried foods, bread and chocolate. Sticking to one food item at a time - berries and eggs Gets bloated and complains of early satiety. feels bloated the entire day if she has coffee Complains of chronic constipation - went to [facility] 10/2022 - had a mild blockage Placed on Senna, metamucil Goes to the bathroom every 2-3 days associated with straining and incompete evacuation. Constipation started after she had H Pylori infection. Repeat H Pylori was added and pt unable to stop Omeprazole for 2 weeks Carafate has helped a little bit with the burning sensation. Denies heartburn or regurgitation Sometimes she has hoarseness and feels she needs to cough. Pt complains of frequent nausea and denies symptoms of dysphagia, vomiting, change in appetite. Initially weighed > 300 lbs and was able to loose by going on a keto diet. Was able to discontinue diabetic medications Gained 13 lbs over the last year and was able to loose 6-7 lbs Has been walking a lot and goes to the Gym 4 times a week Denies recent diarrhea, black stools or rectal bleeding. Patient denies pulmonary problems, loud snoring or sleep apnea Denies problems with anesthesia in the past. On chronic anticoagulation for AF. Pt at Vaccine clinic at [facility] Lives with - has 3 kids Patient denies known family history of colon cancer or other GI malignancies. Mom had polyps and son had bleeding ulcers PAST EGD/COLONOSCOPY: Never had EGD or colon LABS [facility] : Labs from [facility] were reviewed 10/30/22 H Pylori antigen was positive 12/29/22 H Pylori antigen was negative post treatment IMAGING STUDIES: 12/24/22 BARIUM SWALLOW SHOWED AT [facility]: No laryngeal penetration or tracheal aspiration, normal oral and pharyngeal phase. Mild esophageal dysmotility with tertiary contractions and proximal escape of the ingested bolus. A 13 mm barium tablet passes easily into the stomach. Mild unprovoked gastroesophageal reflux to the mid esophagus. ENDOSCOPIC STUDIES: 04/22/24 EGD AND COLON SHOWED: Endoscopy Findings: ESOPHAGUS: Mildly tortuous esophagus without stricture or ring. No esophagitis or Flores's. STOMACH: Moderate diffuse gastritis DUODENUM: Normal - biopsies were obtained from 3rd part of the duodenum to check for celiac sprue Colonoscopy Findings: No polyps were detected Moderate diverticulosis seen in the sigmoid colon Plan: Repeat Colonoscopy in 5 years due to family history of colon polyps Above findings were reviewed with the patient and relevant handouts were given and the discharge area. BIOPSIES SHOWED: A. Small bowel, biopsy: Small bowel mucosa with preserved villous architecture and patchy increased intraepithelial lymphocytes (see comment). B. Stomach, antrum, biopsy: Gastric antral mucosa with mild chronic inactive gastritis; negative for Helicobacter pylori, intestinal metaplasia and dysplasia. C. Stomach, body, biopsy: Gastric body mucosa within normal limits; negative for Helicobacter pylori, intestinal metaplasia and dysplasia. COMMENT (A): These findings raise the possibility of celiac disease; however other pathologic processes, including H. pylori gastritis, peptic duodenitis, food allergies other than celiac disease, tropical sprue, viral enteritis, injury caused by drugs, autoimmune enteropathy, immunodeficiencies and Crohn's disease can induce intraepithelial lymphocytosis with or without associated architectural changes. In many cases no definite cause is identified. PAST GI HISTORY BY REVIEW OF MEDICAL RECORDS: Pt seen by PCP in Jul, 2023 for 3 month history of abdominal bloating, burning with bulge 11/09/2022 patient was diagnosed with Helicobacter pylori infection, treated and follow-up stool test was negative. Patient was seen by GI and at [facility] scheduled for a colonoscopy in 02/10/2024 Pt is taking Omeprazole 80 mg daily for GERD without improvement in symptoms Pt is on Eliquis for chronic AF PFSH Medical History (Updated 05/24/24 @ 08:11 by Minal Hansen MD) Pulmonary embolism Diabetes mellitus, type 2 Atrial fibrillation Surgical History History of esophagogastroduodenoscopy (EGD) Hx of colonoscopy Hx of tubal ligation Social History Household Members: Family Alcohol intake: never Patient Tobacco Use Status: Never used Tobacco Review of Systems Const All systems reviewed & are unremarkable except as noted in HPI and below ENT Reports Normal hearing present Neuro Reports Normal hearing present and Denies Abnormal speech present Physical Exam Vital Signs: Last Vital Signs Pulse 121 H 05/24/24 07:22 BP 104/55 L 05/24/24 07:22 BMI result Body Mass Index 35.6 Const General: healthy appearing and no acute distress Nutritional Appearance: obese Orientation/consciousness: patient oriented x3 Limitations: no limitations HEENT Head: Yes normal to inspection Ears: hearing grossly normal bilaterally Eyes Sclerae: sclerae normal Pupils: Equal, round and reactive pupils present Neck Neck: Yes normal visual inspection Chest Chest palpation & inspection: normal inspection of the chest Resp Effort & Inspection: normal respiratory effort Auscultation: clear to auscultation bilaterally Cardio Palpation: normal PMI Rate: regular rate Rhythm: regular rhythm Heart sounds: S1 normal heart sound present, S2 normal heart sound present and no murmurs GI Palpation (GI): Soft to palpation, nontender, No hepatosplenomegaly present and Other GI palpation findings present (palpable stool in LLQ) Auscultation: normal bowel sounds Rectal Exam - Female: deferred Skin General skin exam: no rashes or lesions noted Neuro General: patient oriented x3, gait normal and moves all extremities Cranial nerves: Yes Equal, round and reactive pupils present and Yes Normal hearing present Speech: No Abnormal speech present Psych Appearance: grossly normal Mental Status: mental status grossly normal Assessment & Plan Assessment & Plan (1) Upper abdominal pain: Code(s): R10.10 - Upper abdominal pain, unspecified Category: Medical (2) Early satiety: Code(s): R68.81 - Early satiety Category: Medical (3) Chronic constipation: Code(s): K59.09 - Other constipation Category: Medical (4) Intermittent diarrhea: Code(s): R19.7 - Diarrhea, unspecified Category: Medical (5) GERD (gastroesophageal reflux disease): Code(s): K21.9 - Gastro-esophageal reflux disease without esophagitis Category: Medical Plan 49 YF with GERD. asthma, DM, HTN, chronic AF (On Apixaban), Migraine HAs and sleep apnea referred by Dr Villa ([facility]) for evaluation of GERD and to schedule a screening colonoscopy Pt complains of abdominal pain, early satiety, bloating, constipation and recent weight gain. Symptoms are likely due to gastroparesis (was diabetic for 10-11 years prior to loosing weight) and slow transit constipation/constipation predominant IBS. Pt may have small bowel bacterial overgrowth or celiac disease. She was advised to schedule a gastric emptying study, an upper endoscopy and a colonoscopy. Start Linzess 145 mcg daily for constipation 05/24/24 Feeling a little better - switched a few things and on a gluten free diet Constipation is better - taking probiotics and not taking any laxatives Probiotics are helping with the bloating as well. Taking Omeprazole 40 mg twice a day and does not feel its helping - wants to try something else EGD and colon results reviewed. Repeat colonoscopy in 5 years due to positive family history of colon polyps. Patient placed on the colonoscopy recall list. FU in 4 months Medications: New pantoprazole 40 mg PO DAILY 30 days 30 tabs 3RF K21.9 - Gastro-esophageal reflux disease without esophagitis Coding Level of Care Code Est Pt Level 4 (84438) Diagnoses Upper abdominal pain R10.10 Early satiety R68.81 Chronic constipation K59.09 Intermittent diarrhea R19.7 GERD (gastroesophageal reflux disease) K21.9 Time Spent (min) 20
--- OUTSIDE RECORDS SUMMARY | 2024-05-24 07:19 | XMS_ITS | Clinical Summary ---
Author Organization [employer] [facility] it Address [address] [place] [address] Care Team Providers Care Funeral Car Driver Name Role Phone Nasreen Cornejo APN Primary Care Provider [phone] Surgical History Surgery Date Site/Laterality Comments TUBAL LIGATION PROCEDURE: HISTORICAL TUBAL LIGATION Medical History Medical History Date Comments Other pulmonary embolism and infarction DX:Other pulmonary embolism and infarction; COMMENT: 2nd to ocp, pt stopped coumadin in 1994 Allergic rhinitis, cause unspecified 10/22/2006 DX:Allergic rhinitis, cause unspecified Onychomycosis 04/26/2007 DX:Onychomycosis Obesity DX:Obesity Anxiety state, unspecified 09/17/2006 DX:An xiety state, unspecified Other specified personal his tory presenting hazards to health(V15.89) DX:Other specifie d personal history presenting hazards to health(V15.89) Diabetes mellitus type 2, uncontrolled 1 DX:Diabetes mellitus type 2, uncontrolled Morbid obesity ([facility]/HCC) 08/01/2011 DX:Morb id obesity ([facility]) Hypercholesteremia 04/29/2012 DX:Hyperchole steremia Historical Medical DX 01/20/2013 DX:Atrial fib/flutter, transient; COMMENT: 10/02 Family History Medical History Relation Name Comments Diabetes Aunt Diabetes Father hypertension, s troke, pacemaker, elevated cholesterol Other: anxiety Mother Breast cancer Other maternal cousi n Hyperlipidemia Paternal Grandmother Other: brain tumor Sister 1 age 6 Relation Name Status Comments Aunt Father Mother Other Paternal Grandmother Sister 1 Sister 2 Social History Tobacco Use Types Packs/Day Years Used Date Smoking Tobacco: Never Smokeless Tobacco: Never Alcohol Use Standard Drinks/Week Comments Yes 0 (1 standard drink = 0.6 oz pur e alcohol) Comments Unknown Sex and Gender Information Value Date Recorded Sex Assigned at Female 10/30/2022 3:49 PM EDT Legal Sex Female 5:36 AM EST Gender Identity Female 10/30/2022 3:49 PM EDT Sexual Orientation Straight 10/30/2022 3: 49 PM EDT Obstetrics History Plan of Treatment Health Maintenance Due Date Last Done Comments Breast Cancer Screening 1973 DTaP,Tdap,and Td Vaccines (1 - Tdap) 01/08/1992 Hepatitis B Vaccines (1 of 3 - 19+ 3-dose series) 01/08/1992 Cervical Cancer Screening: P ap Smear 1994 Cholesterol Screening (Lipid Panel) 03/02/2022 Colorectal Cancer Screening: Colonoscopy 03/02/2022 Depression Screening 03/02/2022 HIV Screening 03/02/2022 Hepatitis C Screening 03/02/2022 Social Influencers of Health Screening 03/02/2022 Pneumococcal Vaccine: 50+ Ye ars (1 of 1 - PCV) 2023 Zoster Vaccines (1 of 2) 2023 COVID-19 Vaccine (1 - 2023-2 5 season) 2023 Influenza Vaccine (#1) 2023 01/30/2020 HIB Vaccines Aged Out No longer eligi ble based on patient's age to complete this topic HPV Vaccines Aged Out No longer eligi ble based on patient's age to complete this topic Hepatitis A Vaccines Aged Out No long er eligible based on patient's age to complete this topic IPV Vaccines Aged Out No longer eligi ble based on patient's age to complete this topic MMR Vaccines Aged Out No longer eligi ble based on patient's age to complete this topic Meningococcal ACWY Vaccine Aged Out N o longer eligible based on patient's age to complete this topic Meningococcal B Vacine Aged Out No lo nger eligible based on patient's age to complete this topic Pneumococcal Vaccine: Pediat rics (0 to 5 Years) and At-Risk Patients (6 to 64 Years) Aged Out No longer eligi ble based on patient's age to complete this topic RSV Immunization Patients Un tyrese 20 months Aged Out No longer eligible b ased on patient's age to complete this topic Varicella Vaccines Aged Out No longer eligible based on patient's age to complete this topic Care Teams Funeral Car Driver Relationship Specialty Start Date End Date Nasreen Cornejo APN [address] [place] [address], [address] [place] [address] PCP - General Internal Medicine 12/15/13
[2024-05-24 07:22] VITALS: BP 104/55; PULSE 121; BMI 35.6
== END 2024-05-24 08:14 | disposition home or self-care (01) ==
PROVIDERS: PCP Internal Medicine; Visit Provider Internal Medicine Gastroenterology
DX: R10.10 Upper abdominal pain, unspecified (principal); R68.81 Early satiety; K59.09 Other constipation; R19.7 Diarrhea, unspecified; K21.9 Gastro-esophageal reflux disease without esophagitis
CPT/HCPCS: 99214

== ENCOUNTER 2024-06-02 08:00 | Observation (INO) | payer OTHER, SELFPAY ==
[2024-06-02] VITALS (11 sets, daily range): BP systolic 118–179; BP diastolic 64–85; PULSE 58–96; RESP 12–20; TEMP 35.7–36.9; O2SAT 96–100; BMI 36.0
--- NOTE | ~2024-06-02 | CT_ITS ---
EXAMINATION: CT ANGIOGRAM HEAD AND NECK CLINICAL INFORMATION: Blurry vision greater on left. Dry mouth. Lightheaded. COMPARISON: None available. TECHNIQUE: Noncontrast axial imaging of the head was performed. This was followed by test bolus sequences and head and neck intravenous bolus administration 70 mL of Omnipaque 350. Helical imaging was performed in the axial plane from the aortic arch to the skull vertex. The data was processed at the seating and mobility technologist's workstation for generation of MIP sequences. Angled MIPs and volume rendered reformatted images were also generated at an offline 3D workstation. Stenoses are assessed in accordance with NASCET criteria unless otherwise indicated. This CT examination was performed using dose optimization techniques as appropriate, variously including the following: *Automated exposure control *Adjustment of mA and/or kV according to patient size (this includes techniques or standardized protocols for targeted exams where dose is matched to indication/reason for exam; i.e. extremities or head) *Use of iterative reconstruction technique FINDINGS: NONCONTRAST HEAD CT: There is no evidence of intracranial hemorrhage or extra-axial fluid collection. There is no mass effect, or edema. No CT evidence of acute territorial infarct. Ventricles, sulci, and cisterns are normal in size and configuration for patient age. No hydrocephalus. No midline shift. No significant white matter abnormalities. Globes and orbital contents image normally. No extracranial soft tissue abnormalities. The paranasal sinuses, mastoid air cells, and tympanic cavities are normally aerated. No suspicious bony abnormalities. NECK CTA: -AORTIC ARCH: Normal in caliber. Mild atheromatous calcification. Three-vessel branching pattern. -GREAT VESSEL ORIGINS: Widely patent. No stenosis. -RIGHT COMMON CAROTID ARTERY: Normal in course and caliber to the level of the bifurcation. -CERVICAL RIGHT INTERNAL CAROTID ARTERY: Normal opacification without focal stenosis or occlusion. -LEFT COMMON CAROTID ARTERY: Normal in course and caliber to the level of the bifurcation. -CERVICAL LEFT INTERNAL CAROTID ARTERY: Normal opacification without focal stenosis or occlusion. -CERVICAL RIGHT VERTEBRAL ARTERY: Normal in course and caliber into the skull base. -CERVICAL LEFT VERTEBRAL ARTERY: Mildly dominant. Mild apparent origin stenosis. This possibly artifact. Otherwise normal in course and caliber into the skull base. OTHER, SOFT TISSUES: -No lymphadenopathy or mass. No abnormal fluid collection or soft tissue swelling. -Normal thyroid. -Imaged superior mediastinal structures normal. -Imaged lung apices clear. CTA OF THE BRAIN: -INTRACRANIAL INTERNAL CAROTID ARTERIES: No focal stenosis or occlusion. No aneurysm. -RIGHT ANTERIOR CEREBRAL ARTERY: Normal A1 segment.. Normal arborization of the distal segments. -LEFT ANTERIOR CEREBRAL ARTERY: Normal A1 segment.. Normal arborization of the distal segments. -ANTERIOR COMMUNICATING ARTERY: Normal. -RIGHT MIDDLE CEREBRAL ARTERY: Normal M1 segment of the MCA without focal stenosis or occlusion. Normal arborization of the distal segments. -LEFT MIDDLE CEREBRAL ARTERY: Normal M1 segment of the MCA without focal stenosis or occlusion. Normal arborization of the distal segments. -RIGHT VERTEBRAL ARTERY V4: Normal in course and caliber. Normal right PICA branch. -LEFT VERTEBRAL ARTERY V4: Normal in course and caliber. Left AICA/PICA. -BASILAR ARTERY: Normal without focal stenosis or occlusion. Normal appearance of the proximal superior cerebellar arteries. Normal basilar tip. -RIGHT POSTERIOR CEREBRAL ARTERY: Normal P1 segment. Normal opacification of the distal TRANSVERSE ABDOMINAL MUSCLE NURSE segments. -LEFT POSTERIOR CEREBRAL ARTERY: The P1 segment is diminutive. origin of the TRANSVERSE ABDOMINAL MUSCLE NURSE with robust opacification of the posterior communicating artery. Normal opacification of the distal TRANSVERSE ABDOMINAL MUSCLE NURSE segments. -POSTERIOR COMMUNICATING ARTERIES: Normal opacification of the superior sagittal, straight, transverse, and sigmoid sinuses. No venous thrombosis. No space-occupying hemorrhage or definite evolving infarct. CT/CT angio head neck IMPRESSION: : NONCONTRAST HEAD CT: 1. No acute intracranial abnormalities. No CT evidence of acute territorial infarct. No hemorrhage. CTA NECK: 1. No significant stenosis, occlusion, or dissection and the major cervical arterial vasculature. 2. There is a mild apparent stenosis at the origin of the left vertebral artery, although this could be artifactual from adjacent bolus artifact. CTA HEAD: 1. There is no large vessel occlusion, significant stenosis, aneurysm, or dissection within the major intracranial arterial vasculature. 2. Partial origin left TRANSVERSE ABDOMINAL MUSCLE NURSE. 3. Major cortical and dural venous sinuses are patent. Electronically signed by: Garcia Brown MD 06/02/2024 11:28 AM EDT
--- NOTE | 2024-06-02 08:32 | ED.NEUROSD ---
HPI - Neuro Symptoms/Deficit General Chief Complaint: Neuro Symptoms/Deficit Stated Complaint: Blurry vision, nausea Time Seen by Provider: 06/02/24 08:29 Source: patient, RN notes reviewed and old records reviewed Mode of arrival: ambulatory History of Present Illness ED Provider: Kristen Arredondo PA-C HPI Narrative: 49-year-old female with a past medical history of PE on Eliquis, diabetes, AFib, presenting to the ED complaining blurry vision > left, dry mouth, nausea, and lightheadedness beginning at 07:00AM while sitting in car waiting to go into work reports associated right-sided headache which is resolved at present. Blurry vision still remains. denies vomiting, diarrhea, CP/SOB, numbness, tingling, focal weakness, vision loss Related Data Home Medications ?Medication ?Instructions ?Recorded ?Confirmed apixaban 5 mg tablet (Eliquis) 5 mg PO BID 10/26/23 06/02/24 valsartan 80 mg tablet 80 mg PO DAILY 10/26/23 06/02/24 Lactobacillus acidophilus 250 750 mmu cells PO DAILY 06/02/24 06/02/24 million cell capsule (Probiotic Acidophilus) cetirizine 10 mg tablet (Zyrtec) 10 mg PO DAILY 06/02/24 06/02/24 multivitamin 1 tab PO DAILY 06/02/24 06/02/24 pantoprazole 40 mg tablet,delayed 40 mg PO DAILY@0630 06/02/24 06/02/24 release valacyclovir 500 mg tablet 500 mg PO DAILY 06/02/24 06/02/24 Previous Rx's ?Medication ?Instructions ?Recorded acetaminophen 500 mg tablet 500 mg PO Q6H PRN fever or pain 11/17/23 (Tylenol Extra Strength) #14 tabs Allergies Allergy/AdvReac Type Severity Reaction Status Date / Time loratadine [From Claritin] AdvReac Palpitation Verified 06/02/24 08:07 s Review of Systems Review of Systems: Yes all other systems are reviewed and are negative Constitutional: Constitutional: Reports as per HPI Neurologic: Denies Abnormal speech present [facility] Past Medical History Attestation statement: The following information was validated with the patient. Source: old records reviewed Medical History Pulmonary embolism Diabetes mellitus, type 2 Atrial fibrillation Surgical History History of esophagogastroduodenoscopy (EGD) Hx of colonoscopy Hx of tubal ligation Social History Social History Household Members: Family Alcohol intake: never Patient Tobacco Use Status: Never used Tobacco Advance Directives: No Advance Directives Information Provided: No Do you have a plan to hurt others: No Plan Physical Exam Vital Signs: Vital Signs: Last Vital Signs Temp 97.9 F 06/02/24 13:09 Pulse 70 06/02/24 13:09 Resp 20 06/02/24 13:09 BP 169/85 H 06/02/24 13:09 Pulse Ox 98 06/02/24 13:09 O2 Del Method Room Air 06/02/24 13:09 BMI result Body Mass Index 36.0 Const: General: cooperative, healthy appearing and no acute distress Orientation/consciousness: patient oriented x3 Limitations: no limitations HEENT: Head: Yes normal to inspection and Yes atraumatic Ears: hearing grossly normal bilaterally General nose exam: Normal external nose present Face and sinus: Yes normal facial exam Eyes: General: appearance normal, both eyes and all related structures Pupils: Equal, round and reactive pupils present EOM: EOMs intact bilaterally Neck: Neck: Yes normal visual inspection and Yes no meningeal signs Resp: Effort & Inspection: normal respiratory effort and no respiratory distress Auscultation: clear to auscultation bilaterally, no crackles and no wheezes Cardio: Rate: regular rate Heart sounds: S1 normal heart sound present and S2 normal heart sound present GI: Inspection: Yes normal to inspection Palpation (GI): Soft to palpation, nontender, no guarding and not rigid : General: Yes no CVA tenderness Back/Spine/Pelvis: Back: no CVA tenderness Skin: Rashes: no rashes Wounds: no wounds Neuro: General: patient oriented x3, gait normal, tone normal, moves all extremities, no meningeal signs, no focal motor deficits and CN's II-XI intact bilaterally Cranial nerves: Yes CN's II-XII intact bilaterally, Yes Equal, round and reactive pupils present and Yes Bilaterally intact EOM present Cognition (Neuro): normal cognition Speech: No Abnormal speech present Gait exam (Neuro): Normal gait present Motor exam (neuro): 5/5 motor strength present throughout, Pronator motor function not present and no tremor noted Coordination: [id number] test normal Romberg Test: Negative Extrem: General: Yes normal to inspection Course Course Course Narrative: -1202-- no leukocytosis. labs otherwise reassuring. Initial troponin negative - UA infected will treat with p.o. Macrobid. Viral testing negative CT angio head neck IMPRESSION: NONCONTRAST HEAD CT: 1. No acute intracranial abnormalities. No CT evidence of acute territorial infarct. No hemorrhage. CTA NECK: 1. No significant stenosis, occlusion, or dissection and the major cervical arterial vasculature. 2. There is a mild apparent stenosis at the origin of the left vertebral artery, although this could be artifactual from adjacent bolus artifact. CTA HEAD: 1. There is no large vessel occlusion, significant stenosis, aneurysm, or dissection within the major intracranial arterial vasculature. 2. 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 3. Major cortical and dural venous sinuses are patent. > troponin x2 negative. Mi unlikely -1258-- on re-evaluation patient reports symptomatic improvement. Denies blurry vision at present. Concern for complicated migraine headache vs TIA. Case d/w ED Attending Dr. Cortez who recc admission > Will discuss case with the hospitalist - spoke with Neurology, Dr. Coker, they will consult upon admission Medications Administered Discontinued Medications Generic Name Dose Route Start Last Admin Trade Name Freq PRN Reason Stop Dose Admin Acetaminophen 650 mg 06/02/24 08:40 06/02/24 08:56 Acetaminophen 325 Mg Tablet PO 06/02/24 08:41 650 mg ONCE ONE Administration Acetaminophen/Butalbital/Caffeine 1 tab 06/02/24 12:59 06/02/24 13:07 Butalb/Acetamin/Caff 50/325/40 Tablet PO 06/02/24 13:00 1 tab ONCE ONE Administration Sodium Chloride 1,000 mls @ 999 mls/hr 06/02/24 08:45 06/02/24 10:24 Ns IV 06/02/24 09:45 Infused .Q1H1M JUAN ALBERTO Infusion Iohexol 100 ml 06/02/24 10:52 06/02/24 10:52 Iohexol 350 Mg/Ml 100 Ml Infus..Btl IV 06/02/24 10:53 70 ml ONCE ONE Administration Nitrofurantoin Macrocrystals 100 mg 06/02/24 12:04 06/02/24 12:24 Nitrofurantoin Monohyd/M-Cryst 100 Mg Capsule PO 06/02/24 12:05 100 mg ONCE ONE Administration Ondansetron HCl 4 mg 06/02/24 08:40 06/02/24 08:56 Ondansetron Hcl 4 Mg/2 Ml Vial IVPUSH 06/02/24 08:41 4 mg ONCE ONE Administration Medical Decision Making Medical Decision Making [facility] Narrative: 49-year-old female with a past medical history of PE on Eliquis, diabetes, AFib, presenting to the ED complaining blurry vision > left, dry mouth, nausea, and lightheadedness beginning at 07:00AM while sitting in car waiting to go into work reports associated right-sided headache which is resolved at present. On exam vital signs stable, NAD, nontoxic appearing. No focal neuro deficits, ambulating w/steady gait. Concern for complicated migraine LEMUS vs atypical ACS. Rule out metabolic abnormalities. Concern for possible CVA/TIA or dissection. Unlikely glaucoma. Plan: EKG labs, UA, CTA head and neck, visual acuity, symptomatic remedies, re-evaluate Please refer to course for remaining clinical decision making, interpretation of labs/imaging results, and discussions with consultants and/or family members. Differential Diagnosis Differential Diagnoses: The differential diagnosis associated with the presentation includes As above Admission/Observation Consideration of admission/observation: Escalation of care including admission/observation considered Lab Data [facility] Lab Attestation statement: I reviewed the patient's lab results. 06/02/24 09:22 06/02/24 09:22 Labs: Lab Results 06/02/24 06/02/24 06/02/24 Range/Units 09:22 10:08 11:44 WBC 4.9 (4.8-10.8) X10*3/uL RBC 4.79 (4.20-5.50) X10*6/uL Hgb 13.9 (12.0-16.0) g/dl Hct 41.6 (37.0-47.0) % MCV 86.8 (80.0-98.0) fL MCH 29.0 (27.0-33.0) pg MCHC 33.4 (31.0-35.0) g/dl RDW 11.8 (11.0-16.0) % Plt Count 234 (160-400) X10*3/uL MPV 10.0 (9.4-12.3) fL Immature Gran % (Auto) 0.2 (0.0-0.4) % Neut % (Auto) 70.2 (45-73) % Lymph % (Auto) 21.0 (20-40) % [place] % (Auto) 4.7 (2-11) % Eos % (Auto) 3.3 (0-4) % Baso % (Auto) 0.6 (0-2) % Lymph # (Auto) 1.0 L (1.2-4.9) X10*3/uL [place] # (Auto) 0.2 (0.1-1.2) X10*3/uL Eos # (Auto) 0.2 (0.0-0.4) X10*3/uL Baso # (Auto) 0.0 (0.0-0.2) X10*3/uL Abs Immat Gran (auto) 0.01 (0.00-0.03) X10*3/uL Absolute Neuts (auto) 3.4 (2.0-8.3) x10*3/uL Absolute Nucleated RBC 0.000 (0.0-0.012) X10*3/uL Nucleated RBC % (auto) 0.0 (0.0-0.2) /100WBC Sodium 142 (135-145) mmol/L Potassium 4.0 (3.3-5.1) mmol/L Chloride 110 H (96-108) mmol/L Carbon Dioxide 27 (22-29) mmol/L Anion Gap 9 L (12-20) BUN 18 H (9-16) mg/dL Creatinine 0.73 (0.5-1.4) mg/dL Estim Creat Clear Calc 98.3 Estimated GFR > 60 Random Glucose 95 (60-115) mg/dL Calcium 9.1 D (8.4-10.2) mg/dL Magnesium 2.0 (1.6-2.6) mg/dL Total Bilirubin 0.6 (0.0-1.0) mg/dL Direct Bilirubin 0.2 (0.0-0.5) mg/dL AST 23 (5-31) U/L ALT 9 (0-31) U/L Alkaline Phosphatase 72 (39-117) U/L Troponin I High Sens < 2.7 < 2.7 (<3.5-17.0) ng/L Total Protein 7.3 (6.5-8.0) g/dL Albumin 4.0 (3.5-5.0) g/dL Urine Color Yellow Urine Appearance Clear Urine pH 8.0 (5.0-9.0) Ur Specific [place] <= 1.005 (1.005-1.025) Urine Protein Negative (Neg-Trace) mg/dL Urine Glucose (UA) Negative (Negative) mg/dL Urine Ketones Negative (Negative) mg/dL Urine Blood Negative (Negative) Urine Nitrite Negative (Negative) Ur Leukocyte Esterase Moderate (2+) H (Negative) Urine RBC 0-2 (0-2) /HPF Urine WBC 6-10 H (0-5) /HPF Ur Squamous Epith Cells 3-5 (0-2) /HPF Urine Bacteria None Seen (None Seen) Hyaline Casts 0-2 (0-2) /LPF Urine Test NEGATIVE (NEGATIVE) Influenza Type A (PCR) NEGATIVE (Negative) Influenza Type B (PCR) NEGATIVE (Negative) RSV RNA Qual (PCR) NEGATIVE (Negative) SARS-CoV-2 RNA (RT-PCR) NEGATIVE (Negative) Independent Interpretation I performed an independent interpretation of an: EKG ( my interpretation EKG sinus bradycardia rate of 55. VT interval 154. No previous to compare. No STEMI) and CT Scan Radiology Impression Discussion of test interpretation with radiology: I have reviewed the radiologist's reading. External Record Review External record reviewed: Inpatient record, Office record, Outpatient record, Prior outpatient labs, Prior outpatient radiology, Primary care record and Outside ED record Tests considered The following testing was considered but not selected: As above Prescription Management I considered prescription management with: Other Chronic Conditions Patient?s care impacted by: Other Social Determinants Patient?s care significantly limited by Social Determinants of Health including: Other Social Determinant of Health NIH Stroke Scale Internal: Initial- Upon Arrival Level of Consciousness: Alert Level of Consciousness Questions: Answers both questions correctly Level of Consciousness Commands: Performs both tasks correctly Best Gaze: Normal Visual: No visual loss Facial Palsy: Normal Motor Arm (Right): No drift Motor Arm (Left): No drift Motor Leg (Right): No drift Motor Leg (Left): No drift Limb Ataxia: Absent Sensory: Normal Best Language: No aphasia Dysarthia: Normal Extinction and Inattention: No abnormality Score: 0 Discharge Plan Discharge Clinical Impression: Transient cerebral ischemia, Complicated migraine, UTI (urinary tract infection), Blurred vision Patient Disposition: Admitted As Inpatient
--- OUTSIDE RECORDS SUMMARY | 2024-06-02 08:48 | XMS_ITS | Clinical Summary ---
Author Organization [employer] [facility] it Address [address] [place] [address] Care Team Providers Care Payroll Benefits Administrator Name Role Phone Nasreen Cornejo APN Primary Care Provider [phone] Surgical History Surgery Date Site/Laterality Comments TUBAL [...] DX:Diabetes mellitus type 2, uncontrolled Morbid obesity ([facility]/HCC) 08/01/2011 DX:Morb id obesity ([facility]) Hypercholesteremia 04/29/2012 DX:Hyperchole steremia Historical Medical DX [...] age to complete this topic Care Teams Payroll Benefits Administrator Relationship Specialty Start Date End Date Nasreen Cornejo APN [address] [place] [address], [address] [place] [address] PCP - General Internal Medicine 12/15/13
--- NOTE | 2024-06-02 08:54 | ECG_ITS ---
Test Reason : blurry vision Blood Pressure : */* mmHG Vent. Rate : 55 BPM Atrial Rate : 55 BPM P-R Int : 154 ms QRS Dur : 102 ms QT Int : 420 ms P-R-T Axes : 25 -9 25 degrees QTcB Int : 401 ms Sinus bradycardia Otherwise normal ECG No previous ECGs available Referred By: Kristen Arredondo Electronically Signed By: DALLAS NEVAREZ
[2024-06-02] MEDS: 0.9 % Sodium Chloride 1,000 ML 999 ML IV (08:56)
[2024-06-02] MEDS: ondansetron HCL 4 MG/2 ML VIAL IVPUSH (08:56)
[2024-06-02] MEDS: Acetaminophen 325 MG TABLET 650 MG PO ×2 (08:56→19:49)
--- NOTE | 2024-06-02 09:26 | MHC.EDTECH ---
visual acuity test completed, pt states she wears glasses for distance and driving normal however she did not have them with her and performed test without them
[2024-06-02 09:28] LABS: MANUAL DIFF FLAG NO
[2024-06-02 09:30] LABS: Hematocrit 41.6 % (37.0-47.0); Hemoglobin 13.9 g/dl (12.0-16.0); Red Blood Count 4.79 X10*6/uL (4.20-5.50); White Blood Count 4.9 X10*3/uL (4.8-10.8)
[2024-06-02 09:31] LABS: Basophils Percent Auto 0.6 % (0-2); Eosinophils Absolute Auto 0.2 X10*3/uL (0.0-0.4); Eosinophils Percent Auto 3.3 % (0-4); Imm Gran Abs Auto 0.01 X10*3/uL (0.00-0.03); Imm Gran Pct Auto 0.2 % (0.0-0.4); Mean Corpuscular HGB Conc 33.4 g/dl (31.0-35.0); Mean Corpuscular Volume 86.8 fL (80.0-98.0); Monocytes Absolute Auto 0.2 X10*3/uL (0.1-1.2); Monocytes Percent Auto 4.7 % (2-11); Neutrophils Absolute Auto 3.4 x10*3/uL (2.0-8.3); Neutrophils Percent Auto 70.2 % (45-73); Platelet Count 234 X10*3/uL (160-400); Red Cell Distribution Width 11.8 % (11.0-16.0)
[2024-06-02 09:56] LABS: Alanine Aminotransferase 9 U/L (0-31); Alkaline Phosphatase 72 U/L (39-117); Anion Gap 9 (12-20); Aspartate Amino Transferase 23 U/L (5-31); Bilirubin Direct 0.2 mg/dL (0.0-0.5); Bilirubin Total 0.6 mg/dL (0.0-1.0); Blood Urea Nitrogen 18 mg/dL (9-16); Calcium 9.1 mg/dL (8.4-10.2); Carbon Dioxide 27 mmol/L (22-29); Chloride 110 mmol/L (96-108); Creatinine Clr Calc Pharmacy 98.3; Estimated Glomerular Filt Rate > 60; Glucose Random 95 mg/dL (60-115); Sodium 142 mmol/L (135-145); Total Protein 7.3 g/dL (6.5-8.0)
[2024-06-02 10:03] LABS: Troponin-I High Sensitivity < 2.7 ng/L (<3.5-17.0)
[2024-06-02 10:17] LABS: Influenza A PCR NEGATIVE (Negative); Influenza B PCR NEGATIVE (Negative); Resp Syncy Virus RNA Qual PCR NEGATIVE (Negative); SARS COV2 PCR INHOUSE NEGATIVE (Negative)
[2024-06-02 10:21] LABS: Appearance Urine Clear; Color Urine Yellow; Glucose Urine UA Negative (Negative); Leukocyte Esterase Urine Moderate (2+) (Negative); Nitrite Urine Negative (Negative); Specific Gravity - Urine <= 1.005 (1.005-1.025); UMIC TRIGGER UACC YES; Urine Blood Negative (Negative); Urine Ketones Negative (Negative); Urine Protein Negative (Neg-Trace)
[2024-06-02 10:24] LABS: Bacteria Urine None Seen (None Seen); Hyaline Casts Urine 0-2 /LPF (0-2); RBC Urine 0-2 /HPF (0-2); UACC Culture Trigger YES; UPreg QC Valid YES; Urine Pregnancy NEGATIVE (NEGATIVE)
[2024-06-02] MEDS: iohexoL 350 MG/ML 100 ML INFUS..BTL IV (10:52)
[2024-06-02 12:21] LABS: Troponin-I High Sensitivity < 2.7 ng/L (<3.5-17.0)
[2024-06-02] MEDS: Nitrofurantoin Monohyd/M-Cryst 100 MG CAPSULE PO (12:24)
[2024-06-02] MEDS: Butalb/Acetamin/Caff 50/325/40 TABLET 1 TAB PO (13:07)
--- NOTE | 2024-06-02 14:22 | PHA.MEDREC ---
Addendum entered by Xavi Tilley [facility] 06/02/24 14:42: med rec checked by [facility] Original Note: Pharmacy Consult ? Medication Reconciliation Pharmacy has completed the medication reconciliation. Spoke to patient to confirm med list. Patient was able to tell me everything she takes.
--- NOTE | 2024-06-02 14:39 | PM.IMHP ---
History of Present Illness Date of Service: 06/02/24 Chief Complaint: Blurry vision, dry mouth headache The patient is a 49-year-old female with a history of hypertension and paroxysmal atrial fibrillation, currently anticoagulated with Eliquis, who experienced one hour of transient symptoms while sitting in her car, including blurry vision, eye fatigue, dry mouth, and an intense sensation. By the time she arrived at the emergency department, all symptoms had resolved.A stroke workup, including head and neck CT, was unremarkable. She currently feels back to baseline. She has been admitted for observation with concern for a transient ischemic attack (TIA). Would you like to include additional workup considerations, such as an MRI, echocardiogram, or monitoring for paroxysmal embolic sources? Review of Systems Review of Systems: Gen: no fever Resp: no sob, no cough CV: no chest, no HERNANDEZ, no leg edema GI: No n/v, no abd pain Neuro: No confusion Yes all other systems are reviewed and are negative [facility] Medical History Pulmonary embolism Diabetes mellitus, type 2 Atrial fibrillation Surgical History History of esophagogastroduodenoscopy (EGD) Hx of colonoscopy Hx of tubal ligation Social History Household Members: Spouse Housing: House Do you presently have visiting nurse or other home services: No Alcohol intake: never Patient Tobacco Use Status: Never used Tobacco Use of substances other than those prescribed or required for medical reasons: No Currently Displaying Signs/Symptoms of Drug Intoxication Withdrawal: No Have you been hit, kicked, punched, or otherwise hurt by someone within the past year? If so, by whom?: No Is there a partner from a previous relationship who is making you feel unsafe now?: No Are you made to feel afraid or neglected: No Advance Directives: No Advance Directives Information Provided: No Do you have a plan to hurt others: No Plan Patient : No Meds Allergies Allergy/AdvReac Type Severity Reaction Status Date / Time loratadine [From Claritin] AdvReac Palpitation Verified 06/02/24 08:07 s Home Medications ?Medication ?Instructions ?Recorded ?Confirmed ?Last Taken ?Type apixaban 5 mg tablet (Eliquis) 5 mg PO BID 10/26/23 06/02/24 06/02/24 History valsartan 80 mg tablet 80 mg PO DAILY 10/26/23 06/02/24 06/02/24 History Lactobacillus acidophilus 250 750 mmu cells PO DAILY 06/02/24 06/02/24 06/02/24 History million cell capsule (Probiotic Acidophilus) cetirizine 10 mg tablet (Zyrtec) 10 mg PO DAILY 06/02/24 06/02/24 06/02/24 History multivitamin 1 tab PO DAILY 06/02/24 06/02/24 06/02/24 History pantoprazole 40 mg tablet,delayed 40 mg PO DAILY@0630 06/02/24 06/02/24 06/02/24 History release valacyclovir 500 mg tablet 500 mg PO DAILY 06/02/24 06/02/24 06/02/24 History Physical Exam Vital Signs and Narrative: Vital Signs: Last Vital Signs Temp 97.9 F 06/02/24 13:09 Pulse 70 06/02/24 13:09 Resp 20 06/02/24 13:09 BP 169/85 H 06/02/24 13:09 Pulse Ox 98 06/02/24 13:09 O2 Del Method Room Air 06/02/24 13:09 BMI result Body Mass Index 36.0 Results Labs 06/02/24 09:22 06/02/24 09:22 Labs: Laboratory Results - last 24 hr 06/02/24 06/02/24 09:22 10:08 MCV 86.8 MCH 29.0 MCHC 33.4 RDW 11.8 Plt Count 234 MPV 10.0 Immature Gran % (Auto) 0.2 Neut % (Auto) 70.2 Lymph % (Auto) 21.0 [place] % (Auto) 4.7 Eos % (Auto) 3.3 Baso % (Auto) 0.6 Lymph # (Auto) 1.0 L [place] # (Auto) 0.2 Eos # (Auto) 0.2 Baso # (Auto) 0.0 Abs Immat Gran (auto) 0.01 Absolute Neuts (auto) 3.4 Absolute Nucleated RBC 0.000 Nucleated RBC % (auto) 0.0 Anion Gap 9 L Estim Creat Clear Calc 98.3 Estimated GFR > 60 Random Glucose 95 Calcium 9.1 D Magnesium 2.0 Total Bilirubin 0.6 Direct Bilirubin 0.2 AST 23 ALT 9 Alkaline Phosphatase 72 Total Protein 7.3 Albumin 4.0 Urine Color Yellow Urine Appearance Clear Urine pH 8.0 Ur Specific [place] <= 1.005 Urine Protein Negative Urine Glucose (UA) Negative Urine Ketones Negative Urine Blood Negative Urine Nitrite Negative Ur Leukocyte Esterase Moderate (2+) H Urine RBC 0-2 Urine WBC 6-10 H Ur Squamous Epith Cells 3-5 Urine Bacteria None Seen Hyaline Casts 0-2 Urine Test NEGATIVE Influenza Type A (PCR) NEGATIVE Influenza Type B (PCR) NEGATIVE RSV RNA Qual (PCR) NEGATIVE SARS-CoV-2 RNA (RT-PCR) NEGATIVE Imaging Radiologist's Impressions: Impressions Head/Neck CTA 06/02/24 10:24 IMPRESSION: : NONCONTRAST HEAD CT: 1. No acute intracranial abnormalities. No CT evidence of acute territorial infarct. No hemorrhage. CTA NECK: 1. No significant stenosis, occlusion, or dissection and the major cervical arterial vasculature. 2. There is a mild apparent stenosis at the origin of the left vertebral artery, although this could be artifactual from adjacent bolus artifact. CTA HEAD: 1. There is no large vessel occlusion, significant stenosis, aneurysm, or dissection within the major intracranial arterial vasculature. 2. 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 3. Major cortical and dural venous sinuses are patent. Electronically signed by: Garcia Brown MD 06/02/2024 11:28 AM EDT Assessment and Plan (1) Transient cerebral ischemia: Status: Acute Plan 49/F with trasient blury vision, dry and LEMUS.. Negative stroke w/u ? TIA plan: Rule TIA observe overnight, neurchecks, neuro consult PAF continue eliquis HTN Losartan GERD PPI DVT prophylaxis: eliquis Quality Stroke Does the patient have a stroke diagnosis?: No VTE Prior VTE?: No VTE Risk Level:: Medical - moderate - high VTE Device Contraindication: Treatment Not Indicated VTE Drug Contraindication: N/A - Med Ordered
--- NOTE | 2024-06-02 16:00 | MHC.STROKE ---
Met with patient in ED bed 17 Pt awake, alert and oriented x 4 Very pleasant and engaged in conversation. No focal neuro deficits noted. Pt reports headache with spots earlier today Plan is to admit patient migraine vs tia Neuro consulted. Pt agreeable to plan. Risk factors discussed including medical hx, medications, diet, activity, and social history. Stroke Education discussed and pamphlet provided. Will continue to assist as needed.
[2024-06-02] MEDS: Apixaban 5 MG TABLET PO (19:49)
[2024-06-02] MEDS: 0.9 % Sodium Chloride Flush 3 ML SYRINGE IVFLUSH (19:51)
[2024-06-02 20:22] LABS: Glucose, Whole Blood 110 mg/dL (60-115)
[2024-06-03 04:00] VITALS: BP 123/55; PULSE 80; RESP 18; TEMP 36.5; O2SAT 98
[2024-06-03] MEDS: Omeprazole 20 MG CAPSULE.DR PO (05:07)
[2024-06-03 06:03] LABS: Cholesterol 173 mg/dL (<200); HDL Cholesterol 48 mg/dL (>40); LDL Cholesterol Calculated 104 mg/dL (<100); Triglycerides 109 mg/dL (<150)
[2024-06-03 07:29] VITALS: BP 127/66; PULSE 65; RESP 18; TEMP 36.5; O2SAT 100
[2024-06-03] MEDS: Valsartan 80 MG TABLET PO (09:25)
[2024-06-03] MEDS: 0.9 % Sodium Chloride Flush 3 ML SYRINGE IVFLUSH (09:26)
[2024-06-03] MEDS: valACYclovir HCL 500 MG TABLET PO (09:26)
[2024-06-03] MEDS: Multivitamin TABLET 1 TAB PO (09:26)
[2024-06-03] MEDS: Apixaban 5 MG TABLET PO (09:26)
[2024-06-03 11:21] VITALS: BP 114/76; PULSE 81; RESP 20; TEMP 36.5; O2SAT 97
[2024-06-03] MEDS: cefuroxime axetiL 250 MG TABLET PO (11:28)
[2024-06-03] MEDS: Acetaminophen 325 MG TABLET 650 MG PO (11:31)
--- NOTE | 2024-06-03 11:50 | PM.NEUROCN ---
History of Present Illness Data of Consult Service Date: 06/03/24 Primary Care Provider: Trupti Villa MD [facility] Reason for consult: Blurred vision 49-year-old female with a history of hypertension and paroxysmal atrial fibrillation, currently anticoagulated with Eliquis, who experienced one hour of transient symptoms while sitting in her car, including blurry vision, eye fatigue, dry mouth, and an intense sensation. She said that she was having headaches 3 to 4 times a week many times lasting for hours. Sometime they lasted for minutes. Pain was mostly bifrontal or bitemporal or in sinus area. She denied any associated symptom with headache but this time she was having blurred vision no double vision. Her initial head CT revealed no significant abnormality. CTA was okay. Review of Systems Review of Systems: No recent trauma fever chills or cold like illness. [facility] Past Medical History Medical History Pulmonary embolism Diabetes mellitus, type 2 Atrial fibrillation Surgical History Surgical History History of esophagogastroduodenoscopy (EGD) Hx of colonoscopy Hx of tubal ligation Social History Social History Household Members: Spouse Housing: House Do you presently have visiting nurse or other home services: No Alcohol intake: never Patient Tobacco Use Status: Never used Tobacco Use of substances other than those prescribed or required for medical reasons: No Currently Displaying Signs/Symptoms of Drug Intoxication Withdrawal: No Have you been hit, kicked, punched, or otherwise hurt by someone within the past year? If so, by whom?: No Is there a partner from a previous relationship who is making you feel unsafe now?: No Are you made to feel afraid or neglected: No Advance Directives: No Advance Directives Information Provided: No Do you have a plan to hurt others: No Plan Patient : No Meds Allergies Allergy/AdvReac Type Severity Reaction Status Date / Time loratadine [From Claritin] AdvReac Palpitation Verified 06/02/24 08:07 s Active Medications: Current Medications Acetaminophen (Acetaminophen 325 Mg Tablet) 650 mg PO Q6H PRN PRN Reason: Pain, Mild 1-3,fever,headache Last Admin: 06/03/24 11:31 Dose: 650 mg Apixaban (Apixaban 5 Mg Tablet) 5 mg PO BID FOR[facility]LY [facility], [facility] Last Admin: 06/03/24 09:26 Dose: 5 mg Calcium Carbonate (Calcium Carbonate 750 Mg Tab.Chew) 750 mg PO Q4H PRN PRN Reason: Heartburn Cefuroxime Axetil (Cefuroxime Axetil 250 Mg Tablet) 250 mg PO Q12H FOR[facility], [facility] Last Admin: 06/03/24 11:28 Dose: 250 mg Loratadine (Loratadine 10 Mg Tablet) 10 mg PO DAILY FOR[facility]LY [facility], [facility] Last Admin: 06/03/24 09:25 Dose: Not Given Magnesium Hydroxide (Milk Of Magnesia 30 Ml Oral.Susp) 30 ml PO DAILY PRN PRN Reason: Constipation Melatonin (Melatonin 3 Mg Tablet) 6 mg PO BEDTIME PRN PRN Reason: Insomnia Multivitamins/Vitamin C (Multivitamin Tablet) 1 tab PO DAILY FOR[facility], [facility] Last Admin: 06/03/24 09:26 Dose: 1 tab Omeprazole (Omeprazole 20 Mg Capsule.Dr) 20 mg PO DAILY@0630 FOR[facility], [facility] Last Admin: 06/03/24 05:07 Dose: 20 mg Ondansetron HCl (Ondansetron Hcl 4 Mg/2 Ml Vial) 4 mg IVPUSH Q8H PRN PRN Reason: Nausea and Vomiting Sodium Chloride (0.9 % Sodium Chloride Flush 3 Ml Syringe) 3 ml IVFLUSH QSHIFT FOR[facility]LY [facility], [facility] Last Admin: 06/03/24 09:26 Dose: 3 ml Valacyclovir HCl (Valacyclovir Hcl 500 Mg Tablet) 500 mg PO DAILY FOR[facility] Last Admin: 06/03/24 09:26 Dose: 500 mg Valsartan (Valsartan 80 Mg Tablet) 80 mg PO DAILY FOR[facility], [facility]; Protocol Last Admin: 06/03/24 09:25 Dose: 80 mg Home Medications ?Medication ?Instructions ?Recorded ?Confirmed ?Last Taken ?Type apixaban 5 mg tablet (Eliquis) 5 mg PO BID 10/26/23 06/02/24 06/02/24 History valsartan 80 mg tablet 80 mg PO DAILY 10/26/23 06/02/24 06/02/24 History Lactobacillus acidophilus 250 750 mmu cells PO DAILY 06/02/24 06/02/24 06/02/24 History million cell capsule (Probiotic Acidophilus) cetirizine 10 mg tablet (Zyrtec) 10 mg PO DAILY 06/02/24 06/02/24 06/02/24 History multivitamin 1 tab PO DAILY 06/02/24 06/02/24 06/02/24 History pantoprazole 40 mg tablet,delayed 40 mg PO DAILY@0630 06/02/24 06/02/24 06/02/24 History release valacyclovir 500 mg tablet 500 mg PO DAILY 06/02/24 06/02/24 06/02/24 History Physical Exam Vital Signs: Vital Signs: Last Vital Signs Temp 97.7 F 06/03/24 11:21 Pulse 81 06/03/24 11:21 Resp 20 06/03/24 11:21 BP 114/76 06/03/24 11:21 Pulse Ox 97 06/03/24 11:21 O2 Del Method Room Air 06/03/24 11:21 BMI result Body Mass Index 36.0 Neuro: Other: She is alert and awake with normal spontaneity of speech fluency comprehension and affect. Face is symmetrical. Visual cisneros are full. There is no pronator drift. Deep tendon reflexes are trace to absent. Speech is normal Results Labs 06/02/24 09:22 06/02/24 09:22 Labs: Head CT did not reveal any significant abnormality. CTA is unremarkable. Microbiology Microbiology Results: Microbiology 06/02/24 Unknown Urine clean catch - Clean Catch Midstream Urine Culture - Final Assessment and Plan (1) Complicated migraine: Status: Acute Her overall symptomatology is suggestive of complicated migraine with probably associated anxiety. She was educated about it. As she was having frequent headaches, and she was in that age group when headaches typically worsened, I recommend starting her on topiramate 25 mg at night for headache control. Procedures Date of Service Date of Service: 06/03/24
--- OUTSIDE RECORDS SUMMARY | 2024-06-03 12:09 | XMS_ITS | Clinical Summary ---
Author Organization [facility] it Address [address] [place] [address] Care Team Providers Care First Aid Nurse Name Role Phone Nasreen Cornejo APN Primary Care Provider [phone] Surgical History Surgery Date Site/Laterality Comments TUBAL [...] DX:Diabetes mellitus type 2, uncontrolled Morbid obesity ([facility]/HCC) 08/01/2011 DX:Morb id obesity ([facility]) Hypercholesteremia 04/29/2012 DX:Hyperchole steremia Historical Medical DX [...] age to complete this topic Care Teams First Aid Nurse Relationship Specialty Start Date End Date Nasreen Cornejo APN [address] [place] [address], [address] [place] [address] PCP - General Internal Medicine 12/15/13
--- NOTE | 2024-06-03 12:41 | P.DS_ITS ---
DS: Providers Provider Date of Service: 06/03/24 Date of admission: 06/02/24 14:51 Date of discharge: 06/03/24 Primary care physician: Trupti Villa MD Consults: 06/02/24 14:51 Consult to Neurology Routine Consulting Provider: [facility] Reason for consultation: TIA Has provider been notified: No DS: Diagnosis Discharge Diagnosis (1) Transient cerebral ischemia: Status: Acute DS: Summary Time Attestation Discharge Coordination Time (in mins): The patient is a 49-year-old female with a history of hypertension and paroxysmal atrial fibrillation, currently anticoagulated with Eliquis, who experienced one hour of transient symptoms while sitting in her car, including blurry vision, eye fatigue, dry mouth, and an intense sensation. By the time she arrived at the emergency department, all symptoms had resolved.A stroke workup, including head and neck CT, was unremarkable. She currently feels back to baseline. She has been admitted for observation with concern for a transient ischemic attack (TIA). Would you like to include additional workup considerations, such as an MRI, echocardiogram, or monitoring for paroxysmal embolic sources? Hospital course: She was observed overnight with neuro checks and had no focal neurological deficits. The Neurologist evaluated her the next day and determined that her presentation was consistent with a complicated migraine. Topiramate 25 mg at bedtime was recommended. She was also c/o mild cramps in the legs that she thinks related to lying, no swelling, no redness, she's on eliquis AFIB.. Reassured Quality: Safe Use of Opioids Does Pt have an Active Cancer Diagnosis on the Problem List?: No Quality: Stroke Does the patient have a stroke diagnosis?: No Physical Exam Vital Signs: Vital Signs: Last Vital Signs Temp 97.7 F 06/03/24 11:21 Pulse 81 06/03/24 11:21 Resp 20 06/03/24 11:21 BP 114/76 06/03/24 11:21 Pulse Ox 97 06/03/24 11:21 O2 Del Method Room Air 06/03/24 11:21 BMI result Body Mass Index 36.0 Const: Other: General: AO X 3, no acute distress Resp: CTA bilateral CVS: S1,S2,RRR GI: +BS, NT, no distention Skin: No rash Neuro: motor grossly intact Psych: appropriate affect DS: Data Data Completed and Pending Labs on day of discharge: Laboratory Results - last 24 hr 06/02/24 06/03/24 19:59 05:36 POC Glucose 110 Triglycerides 109 Cholesterol 173 LDL Cholesterol, Calc 104 H HDL Cholesterol 48 Discharge Plan Discharge Anticipated Discharge Date/Time: 06/03/24 11:02 Patient Disposition: Home, Self-Care Discharge Diagnosis: complicated Migraine, uti [facility]errals: [facility] [Provider Group] Trupti Villa MD [Primary Care Provider] - 2 days Discharge Medications: New cefuroxime axetil 250 mg Tablet 250 mg PO Q12H Qty: 5 0RF topiramate 25 mg tablet 25 mg PO BEDTIME Qty: 30 0RF Continued acetaminophen [Tylenol Extra Strength] 500 mg tablet 500 mg PO Q6H PRN (Reason: fever or pain) Qty: 14 0RF valacyclovir 500 mg tablet 500 mg PO DAILY multivitamin Tablet 1 tab PO DAILY cetirizine [Zyrtec] 10 mg Tablet 10 mg PO DAILY Probiotic Acidophilus 250 million cell Capsule 750 mmu cells PO DAILY pantoprazole 40 mg tablet,delayed release (DR/EC) 40 mg PO DAILY@0630 Eliquis 5 mg tablet 5 mg PO BID valsartan 80 mg tablet 80 mg PO DAILY Discharge Orders: Discharge Order (Routine); Ordered 06/03/24 Ordered By: Giancarlo Hernandez Diet: Advance to usual diet Activity on Discharge: As tolerated Stand Alone Forms: Patient Portal Discharge page Print Language: Italian Care Plan Goals: recovery from migraine, uti Health Concerns: headache, blury vision Plan of Treatment: take ceftin for uti take topiramate 25 mg at bedtime follow up your doctor Assessment: seee above Patient Instructions: Urinary Tract Infection in Women (DC), Migraine Headache (ED), Blurred Vision (ED)
--- NOTE | 2024-06-03 12:42 | MHC.CM.PN ---
PATIENT IS DC HOME - SELF CARE PRIOR TO CASE MANAGEMENT SEEING.
== END 2024-06-03 13:29 | disposition home or self-care (01) ==
LOC: HO.ED 13:06 → HO.EDOVER 15:25 → HO.IMC 06-03 10:37
PROVIDERS: Physician Assistant; Admitting Provider Internal Medicine; Emergency Provider Emergency Medicine; PCP Internal Medicine; Visit Provider Internal Medicine
DX: G43.109 Migraine with aura, not intractable, without status migrainosus (principal); N39.0 Urinary tract infection, site not specified; R42 Dizziness and giddiness; H53.8 Other visual disturbances; R68.2 Dry mouth, unspecified; R11.0 Nausea; I48.0 Paroxysmal atrial fibrillation; E11.9 Type 2 diabetes mellitus without complications; I26.99 Other pulmonary embolism without acute cor pulmonale; Z79.01 Long term (current) use of anticoagulants; Z79.899 Other long term (current) drug therapy; Z03.818 Encounter for observation for suspected exposure to other biological agents ruled out
CPT/HCPCS: 0241U; 36415; 70496; 70498; 80048; 80061; 80076; 81001; 81025; 82947; 83735; 84484; 85025; 87086; 93005; 96361; 96374; 99222; 99285; J2405; Q9967

== ENCOUNTER → 2024-06-02 08:40 | Outpatient (BNV) | payer OTHER, SELFPAY | PROVIDERS: Emergency Provider Emergency Medicine; PCP Internal Medicine; Visit Provider Radiology Diagnostic Radiology | DX: H53.8 Other visual disturbances (principal); R68.2 Dry mouth, unspecified; R42 Dizziness and giddiness | CPT/HCPCS: 70496; 70498 ==

== ENCOUNTER → 2024-06-02 08:54 | Outpatient (BNV) | payer OTHER, SELFPAY | PROVIDERS: Admitting Provider Internal Medicine; Emergency Provider Emergency Medicine; PCP Internal Medicine; Visit Provider Internal Medicine | DX: R00.1 Bradycardia, unspecified (principal) | CPT/HCPCS: 93010 ==

== ENCOUNTER → 2024-06-02 14:51 | Outpatient (BNV) | payer OTHER, SELFPAY | PROVIDERS: Admitting Provider Internal Medicine; Emergency Provider Emergency Medicine; PCP Internal Medicine; Visit Provider Internal Medicine | DX: G45.9 Transient cerebral ischemic attack, unspecified (principal) | CPT/HCPCS: 99222; 99239 ==

== ENCOUNTER → 2024-06-02 14:51 | Outpatient (BNV) | payer OTHER, SELFPAY | PROVIDERS: Admitting Provider Internal Medicine; Emergency Provider Emergency Medicine; PCP Internal Medicine; Visit Provider Psychiatry & Neurology Neurology | DX: G43.109 Migraine with aura, not intractable, without status migrainosus (principal) | CPT/HCPCS: 99222 ==

== ENCOUNTER 2024-10-06 07:39 | Outpatient (AMB) | payer OTHER, SELFPAY ==
--- OUTSIDE RECORDS SUMMARY | 2024-10-06 07:41 | XMS_ITS | Clinical Summary ---
Author Organization [facility] it Address [address] [place] [address] Care Team Providers Care Potato Loader Name Role Phone Nasreen Corneoj APN Primary Care Provider [phone] Surgical History Surgery Date Site/Laterality Comments TUBAL [...] DX:Diabetes mellitus type 2, uncontrolled Morbid obesity (CMS/HCC V24, CMS/HCC V28) 08/01/2011 DX:Morbid obesity ([facility]) Hypercholesteremia 04/29/2012 DX:Hyperchole steremia Historical [...] 2023-2 5 season) 2023 Influenza Vaccine (#1) 2024 01/30/2020 HIB Vaccines Aged Out No longer [...] age to complete this topic Meningococcal B Vaccine Aged Out No l onger eligible based on patient's age to complete this topic RSV Immunization Patients Un tyrese 20 months Aged Out No longer eligible b ased on patient's age to complete this topic Varicella Vaccines Aged Out No longer eligible based on patient's age to complete this topic Care Teams Potato Loader Relationship Specialty Start Date End Date Nasreen Cornejo APN [address] [place] [address], [address] [place] [address] PCP - General Internal Medicine 12/15/13
--- OUTSIDE RECORDS SUMMARY | 2024-10-06 07:41 | XMS_ITS | Clinical Summary ---
Author Organization [employer] Address [address] [place] [address] Care Team Providers Care Work Car Operator Name Role Phone Unavailable Primary Care Provider Unavailabl e Allergies Active Allergy Reactions Criticality Noted Date Comments Loratadine 06/07/2024 Medications No known medications Active Problems No known active problems Social History Tobacco Use Types Packs/Day Years Used Date Smoking Tobacco: Never Tobacco Cessation:Counseling Given: Not Answered Comments Unknown Sex and Gender Information Value Date Recorded Sex Assigned at Female 06/06/2024 11:55 AM EDT Legal Sex Female 11:53 AM EDT Gender Identity Female 06/06/2024 11:55 AM EDT Sexual Orientation Straight 06/06/2024 11 :55 AM EDT Plan of Treatment Health Maintenance Due Date Last Done Comments CT Colonography 1973 Colonoscopy 1973 Colorectal Cancer Screening 1973 Depression Screening 1973 FIT DNA/Cologuard 1973 FIT 1973 FOBT 1973 HIV Screening 1973 SDOH Screening 1973 Sigmoidoscopy 1973 Disability Screening 1973 Alcohol/Substance Use Screening 1985 Family Planning (PISQ) 01/08/1988 Hepatitis C Screening 1991 DTaP/Tdap/Td Vaccines (1 - Tdap) 01/08/1992 Hepatitis B Vaccines (1 of 3 - 19+ 3-dose series) 01/08/1992 Pap Smear 1994 Cervical Cancer Screening 2003 HPV/Cotest 2003 Mammogram 2013 Pneumococcal Vaccine: 50+ Years (1 of 1 - PCV) 2023 Zoster Vaccines (1 of 2) 2023 COVID-19 Vaccine (3 - 2024-2 5 season) 2023 05/31/2020, 05/12/2020 Influenza Vaccine (#1) 2024 Tobacco Screening 06/07/2025 06/07/2024 RSV Patients and Patients Aged 60 years or older (1 - 1-dose 75+ series) 01/08/2048 HIB Vaccines Aged Out No longer eligi [...] patient's age to complete this topic Meningococcal Vaccine Aged Out No kristen angella eligible based on patient's age to complete this topic RSV under 20 months Aged Out No longe r eligible based on patient's age to complete this topic Rotavirus Vaccines Aged Out No longer eligible based on patient's age to complete this topic Insurance
--- NOTE | 2024-10-06 07:53 | A.OFFVIS_ITS ---
Vital Signs 10/06/24 07:57 Height 5 ft 3 in Weight 201 lb BMI 35.6 BP 123/71 Blood Pressure Location Lt brachial Position Sitting Pulse 79 Pulse Oximetry (%) 97 Oxygen Delivery Method Room Air Intake Visit Reasons: 4 mo Intake Note: Patient follow up for Chronic constipation. Patient cc: acid reflux come and go. Denies any other GI issues. Constipation is much better with the Probiotic. Proration Clerk Required: No Accompanied by: Self / Same As Patient Allergies loratadine (From Claritin) Adverse Reaction (Verified 10/06/24 07:53) Palpitations Medication List - Last Reconciled 10/06/24 by Minal Hansen MD acetaminophen (Tylenol Extra Strength) 500 mg PO Q6H PRN apixaban (Eliquis) 5 mg PO BID cefuroxime axetil 250 mg PO Q12H cetirizine (Zyrtec) 10 mg PO DAILY Lactobacillus acidophilus (Probiotic Acidophilus) 750 mmu cells PO DAILY multivitamin 1 tab PO DAILY pantoprazole 40 mg PO DAILY@0630 90 days topiramate 25 mg PO BEDTIME valacyclovir 500 mg PO DAILY valsartan 80 mg PO DAILY HPI HPI 4 mo: Details: GI clinic visit for this 49 YF with GERD. asthma, DM, HTN, chronic AF (On Apixaban), Migraine HAs and sleep apnea referred by Dr Villa ([facility], [facility]) for follow-up evaluation of GERD and chronic constipation. TODAY'S VISIT: Patient cc: Patient cc: acid reflux come and go. Denies any other GI issues. Constipation is much better The patient is a 49-year-old female presenting with gastrointestinal concerns, specifically constipation and GERD. For constipation, the patient successfully manages her symptoms using Florastor and Culturelle probiotics. The discontinuation or reduction of Florastor resulted in decreased bowel frequency, leading to constipation recurring every four days. Maintaining a consistent probiotic regimen is essential, though it presents a financial burden due to the cost of these supplements. For GERD management, the patient transitioned from omeprazole to pantoprazole, finding the latter more effective at controlling her reflux symptoms, with only occasional episodes of mild reflux. The patient adheres to a gluten-free and lactose-free diet with efforts to include more plant-based foods. She finds this restrictive diet challenging in social situations but effective in maintaining gastrointestinal stability, noting significant discomfort when dietary adherence lapses, such as experience after consuming Macedonian fries. The patient adheres to a gluten-free and lactose-free diet, with ongoing efforts to incorporate more plant-based foods into her diet. She reports consuming probiotics, including Florastor and Culturelle, to manage her constipation, with a monthly expense of approximately $90.00 for these supplements. Dining out proves challenging due to limited available options that fit her dietary restrictions, though she has sufficient resources available at home to maintain her diet. Occasional dietary lapses lead to gastrointestinal discomfort. PAST VISITS: nauseas in the morning, patient is taking probiotic and that helping her with bloating and constipation, patient feeling an strange feeling on her throat with acid reflex. Patient wanted to switch Omeprazole. Feeling a little better - switched a few things Constipation is better - taking probiotics and not taking any laxatives Probiotics are helping with the bloating as well. Taking Omeprazole 40 mg twice a day and does not feel its helping - wants to try something else Patient complains of intermittent upper abdominal pain/bad discomfort with burning all over the abdomen. Pain is daily and can have pain after eating or drinking water or on an empty stomach Symptoms are worse with coffee, fried foods, bread and chocolate. Sticking to one food item at a time - berries and eggs Gets bloated and complains of early satiety. feels bloated the entire day if she has coffee Complains of chronic constipation - went to [facility] 10/2022 - had a mild blockage Placed on Senna, metamucil Goes to the bathroom every 2-3 days associated with straining and incompete evacuation. Constipation started after she had H Pylori infection. Repeat H Pylori was added and pt unable to stop Omeprazole for 2 weeks Carafate has helped a little bit with the burning sensation. Denies heartburn or regurgitation Sometimes she has hoarseness and feels she needs to cough. Pt complains of frequent nausea and denies symptoms of dysphagia, vomiting, change in appetite. Initially weighed > 300 lbs and was able to loose by going on a keto diet. Was able to discontinue diabetic medications Gained 13 lbs over the last year and was able to loose 6-7 lbs Has been walking a lot and goes to the Gym 4 times a week Denies recent diarrhea, black stools or rectal bleeding. Patient denies pulmonary problems, loud snoring or sleep apnea Denies problems with anesthesia in the past. On chronic anticoagulation for AF. Pt at [facility] clinic at [facility] Lives with - has 3 kids Patient denies known family history of colon cancer or other GI malignancies. Mom had polyps and son had bleeding ulcers PAST EGD/COLONOSCOPY: Never had EGD or colon LABS IN [facility] : Labs from [facility] [place] were reviewed 10/30/22 H Pylori antigen was positive 12/29/22 H Pylori antigen was negative post treatment IMAGING STUDIES: 12/24/22 BARIUM SWALLOW SHOWED AT [facility] [place]: No laryngeal penetration or tracheal aspiration, normal oral and pharyngeal phase. Mild esophageal dysmotility with tertiary contractions and proximal escape of the ingested bolus. A 13 mm barium tablet passes easily into the stomach. Mild unprovoked gastroesophageal reflux to the mid esophagus. ENDOSCOPIC STUDIES: 04/22/24 EGD AND COLON SHOWED: Endoscopy Findings: ESOPHAGUS: Mildly tortuous esophagus without stricture or ring. No esophagitis or Flores's. STOMACH: Moderate diffuse gastritis DUODENUM: Normal - biopsies were obtained from 3rd part of the duodenum to check for celiac sprue Colonoscopy Findings: No polyps were detected Moderate diverticulosis seen in the sigmoid colon Plan: Repeat Colonoscopy in 5 years due to family history of colon polyps Above findings were reviewed with the patient and relevant handouts were given and the discharge area. BIOPSIES SHOWED: A. Small bowel, biopsy: Small bowel mucosa with preserved villous architecture and patchy increased intraepithelial lymphocytes (see comment). B. Stomach, antrum, biopsy: Gastric antral mucosa with mild chronic inactive gastritis; negative for Helicobacter pylori, intestinal metaplasia and dysplasia. C. Stomach, body, biopsy: Gastric body mucosa within normal limits; negative for Helicobacter pylori, intestinal metaplasia and dysplasia. COMMENT (A): These findings raise the possibility of celiac disease; however other pathologic processes, including H. pylori gastritis, peptic duodenitis, food allergies other than celiac disease, tropical sprue, viral enteritis, injury caused by drugs, autoimmune enteropathy, immunodeficiencies and Crohn's disease can induce intraepithelial lymphocytosis with or without associated architectural changes. In many cases no definite cause is identified. PAST GI HISTORY BY REVIEW OF MEDICAL RECORDS: Pt seen by PCP in Jul, 2023 for 3 month history of abdominal bloating, burning with bulge 11/09/2022 patient was diagnosed with Helicobacter pylori infection, treated and follow-up stool test was negative. Patient was seen by GI and at [facility] scheduled for a colonoscopy in 02/10/2024 Pt is taking Omeprazole 80 mg daily for GERD without improvement in symptoms Pt is on Eliquis for chronic AF [facility] Medical History Pulmonary embolism Diabetes mellitus, type 2 Atrial fibrillation Surgical History History of esophagogastroduodenoscopy (EGD) Hx of colonoscopy Hx of tubal ligation Social History Household Members: Spouse Housing: House Do you presently have visiting nurse or other home services: No Alcohol intake: never Patient Tobacco Use Status: Never used Tobacco Review of Systems Const All systems reviewed & are unremarkable except as noted in HPI and below ENT Reports Normal hearing present GI Details: Pt reports improved bowel habits with probiotics. Denies frequent heartburn; reports occasional reflux. - Gastrointestinal: Denies significant gastric discomfort with current diet adherence. - General: Reports adherence to gluten-free, lactose-free diets. Neuro Reports Normal hearing present and Denies Abnormal speech present Physical Exam Vital Signs: Last Vital Signs Pulse 79 10/06/24 07:57 BP 123/71 10/06/24 07:57 Pulse Ox 97 10/06/24 07:57 Oxygen Delivery Method Room Air 10/06/24 07:57 BMI result Body Mass Index 35.6 Const General: healthy appearing and no acute distress Nutritional Appearance: obese Orientation/consciousness: patient oriented x3 Limitations: no limitations HEENT Head: Yes normal to inspection Ears: hearing grossly normal bilaterally Eyes Sclerae: sclerae normal Pupils: Equal, round and reactive pupils present Neck Neck: Yes normal visual inspection Chest Chest palpation & inspection: normal inspection of the chest Resp Effort & Inspection: normal respiratory effort Auscultation: clear to auscultation bilaterally Cardio Palpation: normal PMI Rate: regular rate Rhythm: regular rhythm Heart sounds: S1 normal heart sound present, S2 normal heart sound present and no murmurs GI Inspection: Yes obesity Palpation (GI): Soft to palpation, nontender and No hepatosplenomegaly present Auscultation: normal bowel sounds Rectal Exam - Female: deferred Skin General skin exam: no rashes or lesions noted Neuro General: patient oriented x3, gait normal and moves all extremities Cranial nerves: Yes Equal, round and reactive pupils present and Yes Normal hearing present Speech: No Abnormal speech present Psych Appearance: grossly normal Mental Status: mental status grossly normal Assessment & Plan Assessment & Plan (1) Upper abdominal pain: Code(s): R10.10 - Upper abdominal pain, unspecified Category: Medical (2) Chronic constipation: Code(s): K59.09 - Other constipation Category: Medical (3) Intermittent diarrhea: Code(s): R19.7 - Diarrhea, unspecified Category: Medical (4) GERD (gastroesophageal reflux disease): Code(s): K21.9 - Gastro-esophageal reflux disease without esophagitis Category: Medical (5) Abdominal bloating: Code(s): R14.0 - Abdominal distension (gaseous) Category: Medical Plan 49 YF with GERD. asthma, DM, HTN, chronic AF (On Apixaban), Migraine HAs and sleep apnea referred by Dr Villa ([facility]) for evaluation of GERD and to schedule a screening colonoscopy Pt complains of abdominal pain, early satiety, bloating, constipation and recent weight gain. Symptoms are likely due to gastroparesis (was diabetic for 10-11 years prior to loosing weight) and slow transit constipation/constipation predominant IBS. Pt may have small bowel bacterial overgrowth or celiac disease. She was advised to schedule a gastric emptying study, an upper endoscopy and a colonoscopy. Gastric emptying study was normal. Start Linzess 145 mcg daily for constipation 05/24/24 Feeling a little better - switched a few things and on a gluten free diet Constipation is better - taking probiotics and not taking any laxatives Probiotics are helping with the bloating as well. Taking Omeprazole 40 mg twice a day and does not feel its helping - wants to try something else EGD and colon results reviewed. Repeat colonoscopy in 5 years due to positive family history of colon polyps. Patient placed on the colonoscopy recall list. 10/06/24 The patient will continue her probiotics regimen to manage constipation, maintaining the use of Florastor despite its cost due to its effectiveness in managing bowel movement regularity. GERD management will continue with pantoprazole, as it has proven more effective at symptom control compared to previous medications. The patient is advised to maintain her gluten-free and lactose-free diet, with efforts to incorporate plant-based foods to support her overall gastrointestinal health. Discussion about purchasing supplements in bulk from cost-effective sources is recommended to manage expenses. FU in 6 months Medications: New Saccharomyces boulardii (Florastor) 250 mg PO BID 60 caps 3RF 30 days K59.09 - Other constipation, R14.0 - Abdominal distension (gaseous) Coding Level of Care Code Est Pt Level 3 (62021) Diagnoses Upper abdominal pain R10.10 Chronic constipation K59.09 Intermittent diarrhea R19.7 GERD (gastroesophageal reflux disease) K21.9 Abdominal bloating R14.0 Time Spent (min) 15
[2024-10-06 07:57] VITALS: BP 123/71; PULSE 79; O2SAT 97; BMI 35.6
== END 2024-10-06 08:19 | disposition home or self-care (01) ==
LOC: HO.HGI 07:40
PROVIDERS: PCP Internal Medicine; Visit Provider Internal Medicine Gastroenterology
DX: R10.10 Upper abdominal pain, unspecified (principal); K59.09 Other constipation; R19.7 Diarrhea, unspecified; K21.9 Gastro-esophageal reflux disease without esophagitis; R14.0 Abdominal distension (gaseous)
CPT/HCPCS: 99213

== ENCOUNTER 2024-10-24 08:22 | Outpatient (AMB) | payer OTHER, SELFPAY ==
[2024-10-24 08:33] VITALS: BP 120/78; PULSE 71; O2SAT 99; BMI 36.5
--- NOTE | 2024-10-24 08:33 | A.OFFVIS_ITS ---
Vital Signs 10/24/24 08:33 Height 5 ft 3 in Weight 206 lb 2 oz BMI 36.5 BP 120/78 Blood Pressure Location Rt brachial Position Sitting Pulse 71 Pulse Source Pulse Oximeter Pulse Oximetry (%) 99 Oxygen Delivery Method Room Air Intake Visit Reasons: [id number] Vision / Headaches Intake Note: NPV for blurry vision and headaches. Allergies loratadine (From Claritin) Adverse Reaction (Verified 10/24/24 08:37) Palpitations HPI Comments Details: History of Present Illness The patient is a 49-year-old right-handed female presenting with headaches. The patient reports experiencing headaches since age 33 which have worsened in frequency and intensity over the past year. Denies frequent or bothersome headaches during her childhood or teenage years. In May of this year, her typical visual aura, of ipsilateral kaleidoscope type vision changes, was preceded by bilateral transient vision loss, as if a shade had been drawn down over both eyes. Patient states this had never happened before, thus she had [facility] evaluation, where stroke workup was unremarkable. Per patient she was diagnosed with complicated menopause migraines and UTI. At this point, she was not on any headache prevention treatment. Was only using Tylenol 1000 mg every 6 hours as needed. She was started on topiramate 25 mg q.h.s. and was treated with course of antibiotic for the UTI. She has not had any further vision loss episodes since. She describes her headaches as having a mild headache or allergy headache as well as migraine headaches. She states she was never officially diagnosed with migraine, just felt that her symptoms were consistent with migraine. She does note that her milder headaches or allergy headaches can be associated with photophobia and nausea times. She notes that she was diagnosed with celiac disease in March of this year, and since she has been very compliant with the celiac diet. However, this has not had any impact on her headache burden. Surgical History: - None reported Results 06/02/2024, NONCONTRAST HEAD CT: 1. No acute intracranial abnormalities. No CT evidence of acute territorial infarct. No hemorrhage. CTA NECK: 1. No significant stenosis, occlusion, or dissection and the major cervical arterial vasculature. 2. There is a mild apparent stenosis at the origin of the left vertebral artery, although this could be artifactual from adjacent bolus artifact. CTA HEAD: 1. There is no large vessel occlusion, significant stenosis, aneurysm, or dissection within the major intracranial arterial vasculature. 2. Partial origin left [employer]. 3. Major cortical and dural venous sinuses are patent. Review of Systems - General: Always tired - Neurological: Reports vision changes, vision loss, neck soreness, and frequent headaches. Reports tingling or creepy crawly sensation in her hands and lower extremities-occurring at rest and with activity- chronic, attributes to history of diabetes. - Cardiovascular: Reports atrial fibrillation. + pulmonary embolism in 1994 due to OCP tx. History of HTN prior to weight loss. Denies other cardiovascular symptoms. - Metabolic: History of diabetes, resolve with dietary changes, exercise and weight loss. - Gastrointestinal: Reports history of celiac disease, issues resolved with gluten-free diet. Denies nausea or vomiting. - Psychiatric: Reports anxiety-currently stable, with history of more pronounced anxiety and possible panic attacks. Not currently seeing a therapist. States her is her therapist. 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 History of right frozen shoulder d/t ? Overuse injury from previous employment where she was helping to move. Pertinent denials: Denies history of anemia, restless leg symptoms, leg cramps, kidney stones, glaucoma. Denies current headaches or vertigo. Denies history of seizures or passing out, history of head trauma. Past Medical History - Migraine with Aura - Hypertension, on statin for CV protection - Atrial Fibrillation (well controlled on Eliquis) - Celiac Disease - Anxiety (controlled without medication) - Past pulmonary embolism related to control pill use - Prior diabetes (resolved with weight loss) - History of obesity (managed with diet and exercise) - Obstructive Sleep Apnea (history, managed without CPAP currently)- did not tolerate CPAP, was fitted for mandibular device but not using since weight loss Family History - Heart disease (paternal grandfather, father, son) - Stroke (father) - Tachycardia (niece) Headache Review Headache questionnaire: Age/time of onset: 33 Preceding causes: no known causes Previous work-up: ?No MRI- states claustrophobia. ?May 2024 CT head, CTA head neck- overall unremarkable, possible left vertebral artery narrowing. ?Eye exam, after May 2024-per patient, with a normal limits Types of headache disorders: mild migraine/allergy headaches A/W nausea at times, and mod-severe migraine w/ aura Typical headache characteristics: Prodromal symptoms: posterior neck soreness Aura: vision changes- starts seeing spots, colors, like looking through a kaleidoscope Pain intensity: moderate-severe Location, quality, characteristics: neck, right or left or mid-frontal throbbing and pressure pain, never holocranial Associated symptoms: photophobia, sometimes allodynia, nausea, spinning dizziness, not right in space dizziness, lightheadedness, fatigue, cognitive difficulties, activity intolerance, sometimes right or left ipsilateral nostril congestion Postdrome: lingering heaviness Aggravating factors: bending over- increases the pressure sensation Triggers: stress and poor sleep Time of day: No specific time of day Duration and Frequency: 2-3 mild headaches lasting a few hours, 1 severe migraine- in the last 2 weeks- but prior to this- she had a daily headache x's > 1 month- which she attributes to increased stress from a second job. How does headache impact your life? Tries to push through- has an FMLA- but not using as she is not using d/t financial reasons. Current acute medication use/interventions: Tylenol 1000mg q 6hrs- when she has a headache. Current preventative medication use: Topiramate 25mg- started in May- tolerating well. Current non-pharmacological interventions: Ice pack, Vicks for the nasal congestion. Headache Lifestyle Factors Social History - Employment: Works full-time at [employer], previous job caused high stress levels. - Exercise: Active lifestyle including daily exercise and hiking. - Family Status: - Weight management: Lost weight successfully through diet and physical activity. - Nutrition: Gluten-free diet adherence due to celiac disease. - Substance Use: Denies alcohol, smoking, and drug use. Sleep - Typical bedtime is around 11:00 PM, waking at 4:30 AM, experiencing difficulty sleeping. - Reports poor sleep with insomnia, snoring, frequent arousals, and resulting daytime fatigue. - Reports insomnia with difficulty sleeping at night despite feeling sleepy during the day. - No history of current snoring or sleep apnea management, despite previous CPAP recommendation. - Reports poor sleep quality impacting overall daytime fatigue. Substance Use History - Denies use of tobacco, alcohol, CBD, or any illicit substances. 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 [facility] Medical History Pulmonary embolism Diabetes mellitus, type 2 Atrial fibrillation Surgical History History of esophagogastroduodenoscopy (EGD) Hx of colonoscopy Hx of tubal ligation Social History Household Members: Spouse Housing: House Do you presently have visiting nurse or other home services: No Alcohol intake: never Patient Tobacco Use Status: Never used Tobacco Physical Exam Vital Signs: Last Vital Signs Pulse 71 10/24/24 08:33 BP 120/78 10/24/24 08:33 Pulse Ox 99 10/24/24 08:33 Oxygen Delivery Method Room Air 10/24/24 08:33 BMI result Body Mass Index 36.5 Const Orientation/consciousness: patient oriented x3 Resp Effort & Inspection: normal respiratory effort and able to speak in complete sentences Neuro Other: Mild right elbow tightness due to previous injury General: patient oriented x3 Cranial nerves: Yes CN's II-XII intact bilaterally Cognition (Neuro): normal cognition Gait exam (Neuro): Normal gait present Motor exam (neuro): 5/5 motor strength present throughout Deep tendon reflexes (DTR's): Right triceps reflex intensity grade: 2+, Left triceps reflex intensity grade: 2+, Rt Biceps (C5, C6): 2+, Left biceps reflex intensity grade: 2+, Right brachioradialis reflex intensity grade: 2+, Left brachioradialis reflex intensity grade: 2+, Right patellar reflex intensity grade: 2+ and Left patellar reflex intensity grade: 2+ Coordination: [id number] test normal, tandem gait normal and Romberg test negative Pupils: Normal pupillary reactivity/response: bilateral Psych Appearance: grossly normal Mental Status: mental status grossly normal Speech and movement: Normal speech and movement present Affect: normal affect Attitude: cooperative Thought process: Normal thought process present Assessment & Plan Assessment & Plan (1) Migraine with aura: Comment: Visual aura- altered vision, as if looking through a kaleidoscope. One episode in May 2024 with brief bilateral vision loss, as if a curtain had been drawn down over both eyes, followed by typical aura and migraine headache. Code(s): G43.109 - Migraine with aura, not intractable, without status migrainosus Category: Medical Qualifiers: Status migrainosus presence: without status migrainosus Intractability: not intractable Qualified Code(s): G43.109 - Migraine with aura, not intractable, without status migrainosus (2) Excessive daytime sleepiness: Code(s): G47.19 - Other hypersomnia Category: Medical (3) Snoring: Code(s): R06.83 - Snoring Category: Medical Plan Discussion Notes The patient and I discussed the diagnosis of migraine with aura and the implications of her symptoms. We reviewed the challenges related to family history, especially regarding cardiovascular risks, and emphasized the impo rtance of managing these risks through medication and lifestyle. ?Recommendation was made for home sleep study to rule out residual sleep apnea. I explained options for acute headache management such as newer migraine therapies, weighing against the context of her AFib and hypertension. We talked about an increase in Topamax dosing for preventative headache management and stress the significance of consistent sleep hygiene and exercise. We also discussed the role of vitamin B2 and magnesium supplementation in reducing migraine frequency. Patient was informed and verbally consented to the use of an ambient scribe for clinic note documentation during this visit. You are advised to undergo: Home sleep study to assess for sleep apnea Future considerations: Brain MRI-note that patient suffers from severe claustrophobia For overall headache management: * Optimize good self-care, including but not limited to maintaining a healthy diet, adequate fluid intake, adequate sleep, and engaging in regular physical activity. * Track headaches and both positive and negative effects of your headache treatment trials, especially after any treatment regimen changes. * Migraine BuddiCloudtop is one of many headache tracking apps. * A simple paper calendar is also a good option. * Non-pharmacological interventions which may help to alleviate your headache attack frequency, severity, and associated symptoms: For light sensitivity: You may benefit from trying blue light filtering glasses, FL-41 blue light filter in glasses, green glasses, green light therapy. Avoid wearing traditional sunglasses inside. For sound sensitivity: You may benefit from trying noise cancellation ear plugs. Neuromodulation devices, which can be used alone or with pharmacological treatment. For acute (as needed) headache treatment: It is important to take acute medications at the first sign of headache. However, please be aware that frequently using most acute medications may increase the frequency of your headache attacks, as well as make your other treatments less effective.. Trial Ubrogepant (Ubrelvy) 100mg tab: * Take Ubrogepant 1/2 - 1 tab (50-100mg) at onset of headache. * You may repeat the dose in 2 hours. Max of 2 tabs (200mg) per 24 hours. * You may take Ubrogepant with OTC Tylenol 650mg q 4 hours, Ibuprofen (liquid gel) 600mg q 6 hours, or Naproxen (liquid gel) 440mg q 12 hrs as needed. * Do not take Ubrogepant with or within 5 days of taking Butalbital (Fioricet or Fiorinal). * Possible adverse effects of Ubrogepant include, but are not limited to, fatigue, nausea, dry mouth, constipation. * This medication likely will require an insurance prior authorization before you will be able to receive this from your pharmacy. ? * We will initiate the prior authorization process per your specific health insurance's requirements. ? * However, please note, that your health insurance belongs to you, and you may also need to communicate with your insurance company in order for the prior authorization request to be processed. ?it is possible that you will also need to speak to your insurance regarding requesting the prior authorization Previous acute migraine medication trials: OTC analgesics-limited effect Acute migraine medication contraindications: All triptans and DHE due to AFib For headache prevention medication: Preventative medications should be taken routinely as prescribed for best effect, it may take several weeks for full effect to take effect. Start Riboflavin 400mg daily in the morning * This is generally well tolerated, however some people may experience mild a bdominal discomfort from use. * This will cause your urine to become bright yellow or orange, which is expected and not of any concern. Start Magnesium 400mg daily at bedtime * Magnesium comes in many subtypes, such as magnesium oxide, glycinate, citrate, and even try magnesium combinations. Additionally magnesium comes in many forms, including tablets, capsules, powders or even liquid formulations. There is not a specific magnesium subtype or form known to be significantly more effective than another. Rather, the magnesium subtype inform that you best tolerate, is the best version for you. * Possible side effects of magnesium include, but are not limited to, GI upset, abdominal cramping, loose stools, and diarrhea Increase topiramate from 25 mg daily at bedtime to 50 mg daily at bedtime. * Potential] adverse effects of Topiramate, include but are not limited to fatigue, cognitive changes, paresthesias (tingling), vision changes, kidney stones. Previous migraine prevention medication trials: None other Migraine prevention medication contraindications: Would avoid TCAs due to AFib diagnosis, caution with Aimovig or atogepant due to history of constipation Case discussed with Dr Hafsa Greenwood. We will follow-up upon review of above and with a follow-up clinic visit in 3 and 6 months or sooner as needed. Orders: Orders RT home sleep study Today G47.19 - Other hypersomnia, G47.33 - Obstructive sleep apnea (adult) (pediatric), R06.83 - Snoring, R63.4 - Abnormal weight loss Medications: New ubrogepant (Ubrelvy) take at onset of migraine, may repeat in 2hrs (may take w/ Ibuprofen) 50 - 100 mg (0.5 - 1 x 100 mg) PO ONCE PRN 16 tabs 3RF migraine headache 30 days riboflavin (vitamin B2) 400 mg PO DAILY 90 tabs 3RF 90 days topiramate (Topamax) 50 mg PO BEDTIME 30 tabs 3RF 30 days magnesium glycinate 400 mg (4 x 100 mg magnesium) PO BEDTIME 360 caps 3RF 90 days Coding Level of Care Code New Pt Level 4 (72499) Diagnoses Migraine with aura and without status migrainosus, not intractable G43.109 Status migrainosus presence: without status migrainosus Intractability: not intractable Excessive daytime sleepiness G47.19 Snoring R06.83
--- OUTSIDE RECORDS SUMMARY | 2024-10-24 08:37 | XMS_ITS ---
Author Name [facility] Organization Unknown Care Team Organization Name Specialty Phone Email Start Date End Da te [facility] NULL Primary Care 01/28/2022 11/09/2023
--- OUTSIDE RECORDS SUMMARY | 2024-10-24 08:37 | XMS_ITS | Clinical Summary ---
Author Organization [employer] [facility] it Address [address] [place] [address] Care Team Providers Care Logging Tractor Operator Name Role Phone Nasreen Cornejo APN Primary Care Provider [phone] Surgical History Surgery Date Site/Laterality Comments TUBAL [...] (CMS/HCC V24, CMS/HCC V28) 08/01/2011 DX:Morbid obesity ([facility]) Hypercholesteremia 04/29/2012 DX:Hyperchole steremia Historical [...] Panel) 03/02/2022 Colorectal Cancer Screening: Colonoscopy 03/02/2022 HIV Screening 03/02/2022 Hepatitis C Screening 03/02/2022 Social Influencers of Health Screening 03/02/2022 Pneumococcal Vaccine: 50+ Ye ars (1 of 1 - PCV) 2023 Zoster Vaccines (1 of 2) 2023 COVID-19 Vaccine (1 - 2023-2 5 season) 2023 Depression Screening 03/23/2024 Influenza Vaccine (#1) 2024 01/30/2020 HIB Vaccines [...] age to complete this topic Care Teams Logging Tractor Operator Relationship Specialty Start Date End Date Nasreen Cornejo APN [address] [place] [address], [address] [place] [address] PCP - General Internal Medicine 12/15/13
--- OUTSIDE RECORDS SUMMARY | 2024-10-24 08:37 | XMS_ITS | Clinical Summary ---
Author Organization [employer] Address [address] [facility] [address] [place] [address] Care Team Providers Care Director Treasurer Name Role Phone Unavailable Primary Care Provider [...]
== END 2024-10-24 10:02 | disposition home or self-care (01) ==
PROVIDERS: PCP Internal Medicine; Visit Provider Nurse Practitioner Family
DX: G43.109 Migraine with aura, not intractable, without status migrainosus (principal); G47.19 Other hypersomnia; R06.83 Snoring
CPT/HCPCS: 99204

== ENCOUNTER 2025-03-07 06:57 | Emergency (ER) | payer SELFPAY ==
--- NOTE | 2025-03-07 | ECG_ITS ---
Test Reason : chest pain Blood Pressure : */* mmHG Vent. Rate : 72 BPM Atrial Rate : 72 BPM P-R Int : 136 ms QRS Dur : 94 ms QT Int : 378 ms P-R-T Axes : 44 -14 28 degrees QTcB Int : 413 ms Normal sinus rhythm Normal ECG When compared with ECG of 02-Jun-2024 09:04, No significant change was found Referred By: Generic ED Physician Electronically Signed By: Que Augustin
--- NOTE | ~2025-03-07 | US_ITS ---
EXAMINATION: US ABDOMEN LIMITED CLINICAL INFORMATION: Right upper quadrant abdominal pain.. COMPARISON: None available. TECHNIQUE: Real-time ultrasound of the right upper quadrant abdomen using grayscale technique. FINDINGS: Liver measures 16 cm. No nodular surface. Coarse echotexture. No solid or cystic lesion. No intrahepatic biliary ductal dilatation. Gallbladder is fluid-filled nondistended. No intraluminal abnormality. No pericholecystic fluid collection or gallbladder wall thickening. Common bile duct measures 2 mm. No gross ascites. US/US abdomen limited IMPRESSION: No cholelithiasis or choledocholithiasis. Normal sized liver. Electronically signed by: Umair Cleaning MD 03/07/2025 09:33 AM EST
--- NOTE | ~2025-03-07 | XR_ITS ---
EXAMINATION: XR CHEST 2 VIEWS HISTORY: CP COMPARISON: Comparison is made with the prior examination dated 11/17/2023. FINDINGS: PA and lateral views of the chest are submitted. An implantable loop recorder is noted in the left anterior chest wall. The lungs are expanded and clear. There is no pleural effusion, pneumothorax, or pulmonary vascular congestion. The heart is normal in size. The bones are intact. XR/XR chest 2V IMPRESSION: No acute cardiopulmonary abnormality. Electronically signed by: Sancho Mora MD 03/07/2025 08:11 AM ESTRELLA
[2025-03-07 07:12] VITALS: BP 149/89; PULSE 74; RESP 18; TEMP 36.2; O2SAT 99; BMI 37.0
[2025-03-07 07:24] LABS: MANUAL DIFF FLAG NO
[2025-03-07 07:26] LABS: Hematocrit 43.9 % (37.0-47.0); Hemoglobin 14.6 g/dl (12.0-16.0); Imm Gran Abs Auto 0.01 X10*3/uL (0.00-0.03); Imm Gran Pct Auto 0.2 % (0.0-0.4); Lymphocytes Absolute Auto 1.4 X10*3/uL (1.2-4.9); Mean Corpuscular HGB Conc 33.3 g/dl (31.0-35.0); Mean Corpuscular Hemoglobin 28.8 pg (27.0-33.0); Mean Corpuscular Volume 86.6 fL (80.0-98.0); NRBC Abs Auto 0.000 X10*3/uL (0.0-0.012); NRBC Pct Auto 0.0 /100WBC (0.0-0.2); Platelet Count 274 X10*3/uL (160-400); Red Blood Count 5.07 X10*6/uL (4.20-5.50); White Blood Count 4.4 X10*3/uL (4.8-10.8)
[2025-03-07 07:39] LABS: Anion Gap 12 (12-20); Blood Urea Nitrogen 18 mg/dL (9-16); Calcium 9.4 mg/dL (8.4-10.2); Carbon Dioxide 28 mmol/L (22-29); Chloride 107 mmol/L (96-108); Creatinine Clr Calc Pharmacy 90.0; Estimated Glomerular Filt Rate > 60; Potassium 4.6 mmol/L (3.3-5.1); Sodium 142 mmol/L (135-145)
[2025-03-07 07:46] LABS: Troponin-I High Sensitivity < 2.7 ng/L (<3.5-17.0)
--- OUTSIDE RECORDS SUMMARY | 2025-03-07 07:53 | XMS_ITS | Clinical Summary ---
Author Organization [employer] Address [address] [facility] [address] [place] [address] Care Team Providers Care Group Supervisor Yard Name Role Phone Unavailable Primary Care Provider [...] of 2) 2023 COVID-19 Vaccine (3 - 2025-2 6 season) 2024 05/31/2020, 05/12/2020 Influenza Vaccine (#1) 2024 Tobacco [...]
--- OUTSIDE RECORDS SUMMARY | 2025-03-07 07:53 | XMS_ITS | Clinical Summary ---
Author Organization [employer] [facility] it Address [address] [place] [address] Care Team Providers Care Diet Counselor Name Role Phone Nasreen Cornejo APN Primary Care Provider [phone] Surgical History Surgery Date Site/Laterality Comments TUBAL [...] (CMS/HCC V24, CMS/HCC V28) 08/01/2011 DX:Morbid obesity ([facility]) Hypercholesteremia 04/29/2012 DX:Hyperchole steremia Historical Medical [...] Orientation Straight 10/30/2022 3: 49 PM EDT Plan of Treatment Health Maintenance Due Date Last Done Comments Breast Cancer Screening 1973 Colorectal Cancer Screening: Colonoscopy 1973 DTaP,Tdap,and Td Vaccines (1 - Tdap) 01/08/1992 Hepatitis B Vaccines (1 of 3 - 19+ 3-dose series) 01/08/1992 Cervical Cancer Screening: P ap Smear 1994 HIV Screening 03/02/2022 Hepatitis C Screening 03/02/2022 Social Influencers of Health Screening 03/02/2022 Pneumococcal Vaccine: 50+ Ye ars (1 of 1 - PCV) 2023 Zoster Vaccines (1 of 2) 2023 Depression Screening 03/23/2024 COVID-19 Vaccine (1 - 2024-2 6 season) 2024 Influenza Vaccine (#1) 2024 01/30/2020 RSV Immunization Adult Patie nts (1 - 1-dose 75+ series) 01/08/2048 HIB [...] age to complete this topic Care Teams Diet Counselor Relationship Specialty Start Date End Date Nasreen Cornejo APN [address] [place] [address], [address] [place] [address] PCP - General Internal Medicine 12/15/13
--- NOTE | 2025-03-07 08:02 | ED.CHESTPAIN ---
HPI - Chest Pain General Chief Complaint: Chest Pain Stated Complaint: chest pain Time Seen by Provider: 03/07/25 08:02 Source: patient and RN notes reviewed Mode of arrival: ambulatory Limitations: no limitations History of Present Illness ED Provider: Daysi Salinas PA-C HPI narrative: This is a 50-year-old female, with a past medical history of GERD, paroxysmal atrial fibrillation on Eliquis, Hypertension, Diverticulitis, gastritis, constipation, and chronic migraines, who presents emergency department with concerns of chest pain for the last 2 days. patient states that her chest pain began 2 days ago after she ate pork. Patient states that she typically avoids eating for per GI recommendations. She states that approximately 15-20 minutes after eating a meal she developed acute onset of abdominal pain and bloating. Several hours later she noticed some midsternal chest pain left-sided chest pain describing as a sharp pinching sensation that radiated into her left shoulder and down her left arm. She does report that she has a history of a pinched nerve in her neck often times has sensation down her left arm, states that she had a difficult time distinguishing whether or not this was baseline arthritis/ pins nerves or something else. Patient reports that the pain lasted for several hours but subsided. She states that she took Mylanta at that time which provided her with some relief. She states that yesterday she felt largely pain-free, only eating watermelon. She states that early this morning is a chest pain reoccurred rating this is a 5/10, worsening after bending over leaning on the bathroom sink. She states that the pain is localized right in the midsternal region into the left breast. She reports that she continues to have some abdominal bloating, however states that this is chronic for her. She does report increased bowel movements when compared to her typical. She denies any fevers, chills, shortness for breath, palpitations, vomiting, diarrhea, cough, congestion, leg swelling. She denies taking any medications this morning. She is a nonsmoker. No other complaints or concerns at this time. MD complaint: chest pain Onset (ago): day(s) Timing of current episode: episodic Prior episodes: No Onset: after eating Pain location: substernal and left chest Pain radiation: left arm Severity: moderate Quality: sharp Relieving factors: nothing Exacerbating factors: nothing Treatment prior to arrival: none Risk Factors Coronary artery disease risk factors: hypertension Thoracic aortic dissection risk factors: none Pulmonary embolism risk factors: clotting disorder Related Data On Oral Contraceptives: No Home Medications ?Medication ?Instructions ?Recorded ?Confirmed apixaban 5 mg tablet (Eliquis) 5 mg PO BID 10/26/23 10/06/24 valsartan 80 mg tablet 80 mg PO DAILY 10/26/23 10/06/24 Lactobacillus acidophilus 250 750 mmu cells PO DAILY 06/02/24 10/06/24 million cell capsule (Probiotic Acidophilus) cetirizine 10 mg tablet (Zyrtec) 10 mg PO DAILY 06/02/24 10/06/24 multivitamin 1 tab PO DAILY 06/02/24 10/06/24 valacyclovir 500 mg tablet 500 mg PO DAILY 06/02/24 10/06/24 atorvastatin 40 mg tablet (Lipitor) 40 mg PO DAILY 10/24/24 10/24/24 Previous Rx's ?Medication ?Instructions ?Recorded acetaminophen 500 mg tablet 500 mg PO Q6H PRN fever or pain 11/17/23 (Tylenol Extra Strength) #14 tabs cefuroxime axetil 250 mg tablet 250 mg PO Q12H #5 tabs 06/03/24 topiramate 25 mg tablet 25 mg PO BEDTIME #30 tabs 06/03/24 Saccharomyces boulardii 250 mg 250 mg PO BID 30 days #60 caps 10/06/24 capsule (Florastor) magnesium glycinate 400 mg (4 x 100 mg magnesium) PO 10/24/24 BEDTIME 90 days #360 caps riboflavin (vitamin B2) 400 mg 400 mg PO DAILY 90 days #90 tabs 10/24/24 tablet topiramate 50 mg tablet (Topamax) 50 mg PO BEDTIME 30 days #30 tabs 10/24/24 ubrogepant 100 mg tablet (Ubrelvy) 50 - 100 mg (0.5 - 1 x 100 mg) PO 11/18/24 ONCE PRN migraine headache 30 days #10 tabs pantoprazole 40 mg tablet,delayed 40 mg PO DAILY@0630 90 days #90 03/06/25 release tabs Allergies Allergy/AdvReac Type Severity Reaction Status Date / Time loratadine (From Claritin) AdvReac Palpitation Verified 03/07/25 07:14 s Review of Systems Review of Systems: Constitutional : No Fever, No Chills ENT/Mouth : No sore throat, No Rhinorrhea Eyes: No Eye Pain, No Swelling, No Redness Cardiovascular : + Chest Pain, No SOB Respiratory : No Cough, No Sputum Gastrointestinal : No Nausea, No Vomiting, No Diarrhea, + abdominal Pain ( patient reports chronic) Genitourinary : No Dysuria, No Hematuria Musculoskeletal : No joint pain, No Myalgias, No Joint Swelling Skin : No Skin Lesions Neuro : No Weakness, No Numbness, No Headache All other systems reviewed and are negative Yes all other systems are reviewed and are negative Constitutional: Constitutional: Reports as per HPI [facility] Past Medical History Medical History (Updated 03/07/25 @ 11:18 by JUJU Hidalgo) Weight loss LAURENT (obstructive sleep apnea) Pulmonary embolism Diabetes mellitus, type 2 Atrial fibrillation Surgical History History of esophagogastroduodenoscopy (EGD) Hx of colonoscopy Hx of tubal ligation Social History Social History Household Members: Spouse Housing: House Do you presently have visiting nurse or other home services: No Alcohol intake: never Patient Tobacco Use Status: Never used Tobacco Advance Directives: No Advance Directives Information Provided: Yes Physical Exam Vital Signs: Vital Signs: Last Vital Signs Temp 97.8 F 03/07/25 11:16 Pulse 67 03/07/25 11:16 Resp 14 03/07/25 11:16 BP 136/84 03/07/25 11:16 Pulse Ox 99 03/07/25 11:16 O2 Del Method Room Air 03/07/25 11:16 BMI result Body Mass Index 37.0 Const: General: cooperative, comfortable and no acute distress Orientation/consciousness: patient oriented x3 Limitations: no limitations HEENT: Head: Yes normal to inspection, Yes normocephalic and Yes atraumatic Ears: hearing grossly normal bilaterally General nose exam: Normal external nose present Face and sinus: Yes normal facial exam Mouth: Normal oral and palatal mucosa present, oropharynx normal and moist mucous membranes Throat: Yes posterior oropharynx normal Eyes: General: appearance normal, both eyes and all related structures Eyelids: Yes eyelids normal Conjunctivae: conjunctivae normal Sclerae: sclerae normal Pupils: Equal, round and reactive pupils present EOM: EOMs intact bilaterally Neck: Neck: Yes normal visual inspection, Yes full ROM and Yes no lymphadenopathy Lymphatic: no lymphadenopathy noted Chest: Other: no chest wall tenderness palpation Chest palpation & inspection: normal inspection of the chest Resp: Effort & Inspection: normal respiratory effort and able to speak in complete sentences Auscultation: clear to auscultation bilaterally, no crackles, no rales, no rhonchi and no wheezes Cardio: Rate: regular rate Rhythm: regular rhythm Heart sounds: S1 normal heart sound present and S2 normal heart sound present GI: Other: Abdomen is soft, she does have mild tenderness palpation in the epigastrium and right upper quadrant. No rebound or guarding. Normoactive bowel sounds present in all 4 quadrants. Inspection: Yes normal to inspection Skin: General skin exam: no rashes or lesions noted Trauma: no lacerations or abrasions Wounds: no wounds Neuro: General: patient oriented x3 and moves all extremities Cranial nerves: Yes Equal, round and reactive pupils present Extrem: Other: no lower extremity edema. General: Yes normal to inspection Right upper extremity: normal to inspection Left upper extremity: normal to inspection Right lower extremity: normal to inspection Left lower extremity: normal to inspection Medical Decision Making Medical Decision Making MDM Narrative: This is a 50-year-old female who presents emergency department with concerns of intermittent chest pain. Chest pain started after eating pork on Thursday. On arrival, patient is well-appearing, appears to be under no acute distress. Vital signs revealed that she is mildly hypertensive at 149/89, all other vital signs within normal limits. Lungs are clear to auscultation bilaterally. No pedal edema. Given left-sided chest pain and strong family history of premature CAD warranting ACS evaluation. She also has some right upper quadrant pain therefore will assess for gallbladder etiology. Labs were initially ordered prior to my evaluation, she has slight leukopenia at 4.4, nonspecific, a basic metabolic panel was ordered prior to my evaluation, no electrolyte derangement. I did add on liver function panel as well as a lipase. EKG normal sinus rhythm with no evidence of arrhythmia or ischemic changes. Advised patient if she develops any new or worsening chest pain to immediately prompt ED personnel to repeat EKG. 8:48 AM 03/07/2025 (Daysi Salinas PA-C): Labs, EKG, abdominal ultrasound, troponin x2, chest x-ray, we will continue to closely monitor. 11:19 AM 03/07/2025 (Daysi Salinas PA-C): Second troponin negative, overall workup today was reassuring. Ultrasound negative. Discussed findings with patient. She will follow-up with the surgical tech, GI specialist, and PCP. Given strict return precautions, she understands and agrees with plan. Patient stable for discharge. Differential Diagnosis Differential Diagnoses: The differential diagnosis associated with the presentation includes ACS, gastritis, atypical chest pain, electrolyte derangement, cholecystitis Admission/Observation Consideration of admission/observation: Escalation of care including admission/observation considered Lab Data [facility] Lab Attestation statement: I reviewed the patient's lab results. see [facility] 03/07/25 07:21 03/07/25 07:21 Labs: Lab Results 03/07/25 03/07/25 Range/Units 07:21 10:34 WBC 4.4 L (4.8-10.8) X10*3/uL RBC 5.07 (4.20-5.50) X10*6/uL Hgb 14.6 (12.0-16.0) g/dl Hct 43.9 (37.0-47.0) % MCV 86.6 (80.0-98.0) fL MCH 28.8 (27.0-33.0) pg MCHC 33.3 (31.0-35.0) g/dl RDW 11.4 (11.0-16.0) % Plt Count 274 (160-400) X10*3/uL MPV 9.5 (9.4-12.3) fL Immature Gran % (Auto) 0.2 (0.0-0.4) % Neut % (Auto) 58.1 (45-73) % Lymph % (Auto) 31.2 (20-40) % [place] % (Auto) 5.9 (2-11) % Eos % (Auto) 4.1 H (0-4) % Baso % (Auto) 0.5 (0-2) % Lymph # (Auto) 1.4 (1.2-4.9) X10*3/uL [place] # (Auto) 0.3 (0.1-1.2) X10*3/uL Eos # (Auto) 0.2 (0.0-0.4) X10*3/uL Baso # (Auto) 0.0 (0.0-0.2) X10*3/uL Abs Immat Gran (auto) 0.01 (0.00-0.03) X10*3/uL Absolute Neuts (auto) 2.6 (2.0-8.3) x10*3/uL Absolute Nucleated RBC 0.000 (0.0-0.012) X10*3/uL Nucleated RBC % (auto) 0.0 (0.0-0.2) /100WBC Sodium 142 (135-145) mmol/L Potassium 4.6 (3.3-5.1) mmol/L Chloride 107 (96-108) mmol/L Carbon Dioxide 28 (22-29) mmol/L Anion Gap 12 (12-20) BUN 18 H (9-16) mg/dL Creatinine 0.80 (0.5-1.4) mg/dL Estim Creat Clear Calc 90.0 Estimated GFR > 60 Random Glucose 87 (60-115) mg/dL Calcium 9.4 (8.4-10.2) mg/dL Total Bilirubin 0.6 (0.0-1.0) mg/dL Direct Bilirubin 0.2 (0.0-0.5) mg/dL AST 28 (5-31) U/L ALT 14 (0-31) U/L Alkaline Phosphatase 91 (39-117) U/L Troponin I High Sens < 2.7 < 2.7 (<3.5-17.0) ng/L Total Protein 7.5 (6.5-8.0) g/dL Albumin 4.2 (3.5-5.0) g/dL Lipase 11 (8-78) U/L Independent Interpretation I performed an independent interpretation of an: EKG Interpretation: normal sinus rhythm at a ventricular rate of 72 beats per minute, AK interval 136, QT QTC 378/413, no STEMI. Radiology Impression Discussion of test interpretation with radiology: I have reviewed the radiologist's reading. Radiologist Impression: EXAMINATION: XR CHEST 2 VIEWS HISTORY: CP COMPARISON: Comparison is made with the prior examination dated 11/17/2023. FINDINGS: PA and lateral views of the chest are submitted. An implantable loop recorder is noted in the left anterior chest wall. The lungs are expanded and clear. There is no pleural effusion, pneumothorax, or pulmonary vascular congestion. The heart is normal in size. The bones are intact. XR/XR chest 2V IMPRESSION: No acute cardiopulmonary abnormality. Electronically signed by: Sancho Mora MD 03/07/2025 08:11 AM EST RP Dictated By: Sancho Mora MD Signed By: <Electronically signed by Sancho Mora MD in OV> CLINICAL INFORMATION: Right upper quadrant abdominal pain.. COMPARISON: None available. TECHNIQUE: Real-time ultrasound of the right upper quadrant abdomen using grayscale technique. FINDINGS: Liver measures 16 cm. No nodular surface. Coarse echotexture. No solid or cystic lesion. No intrahepatic biliary ductal dilatation. Gallbladder is fluid-filled nondistended. No intraluminal abnormality. No pericholecystic fluid collection or gallbladder wall thickening. Common bile duct measures 2 mm. No gross ascites. US/US abdomen limited IMPRESSION: No cholelithiasis or choledocholithiasis. Normal sized liver. Electronically signed by: Umair Cleaning MD 03/07/2025 09:33 AM EST RP Dictated By: Umair Ta MD Discharge Plan Discharge Clinical Impression: Chest pain Patient Disposition: Home, Self-Care Instructions: Chest Pain (ED) Additional Instructions: You were seen in the emergency department for chest pain. Your overall workup today was reassuring. Your EKG did not show any changes. Your troponin blood test which measures any strain on the heart was negative, we repeated this after 2 hours in it remain to be negative. Your ultrasound does not show any abnormalities. It is unclear what caused you to have this chest pain however overall your workup today was reassuring. Please follow-up with your GI specialist, surgical tech, and primary care physician regarding this visit. If any new or worsening symptoms occur including but not limited to worsening pain, shortness of breath, palpitations, please seek emergent care. Prescriptions: No Action Ubrelvy 100 mg tablet 50 - 100 mg PO ONCE PRN (Reason: migraine headache) 30 Days Qty: 10 3RF Rx Instructions: Take at the onset of migraine, may repeat in 2 hours (may take w/Tylenol) pantoprazole 40 mg tablet,delayed release (DR/EC) 40 mg PO DAILY@0630 90 Days Qty: 90 1RF acetaminophen [Tylenol Extra Strength] 500 mg tablet 500 mg PO Q6H PRN (Reason: fever or pain) Qty: 14 0RF valacyclovir 500 mg tablet 500 mg PO DAILY multivitamin Tablet 1 tab PO DAILY cetirizine [Zyrtec] 10 mg Tablet 10 mg PO DAILY Probiotic Acidophilus 250 million cell Capsule 750 mmu cells PO DAILY cefuroxime axetil 250 mg Tablet 250 mg PO Q12H Qty: 5 0RF topiramate 25 mg tablet 25 mg PO BEDTIME Qty: 30 0RF Saccharomyces boulardii [Florastor] 250 mg capsule 250 mg PO BID 30 Days Qty: 60 3RF Eliquis 5 mg tablet 5 mg PO BID valsartan 80 mg tablet 80 mg PO DAILY atorvastatin [Lipitor] 40 mg tablet 40 mg PO DAILY topiramate [Topamax] 50 mg tablet 50 mg PO BEDTIME 30 Days Qty: 30 3RF riboflavin (vitamin B2) 400 mg tablet 400 mg PO DAILY 90 Days Qty: 90 3RF magnesium glycinate 100 mg magnesium capsule 400 mg PO BEDTIME 90 Days Qty: 360 3RF Stand Alone Forms: Work/School Release Print Language: Wallisian
[2025-03-07 09:46] LABS: Alanine Aminotransferase 14 U/L (0-31); Albumin Level 4.2 g/dL (3.5-5.0); Alkaline Phosphatase 91 U/L (39-117); Aspartate Amino Transferase 28 U/L (5-31); Lipase 11 U/L (8-78); Total Protein 7.5 g/dL (6.5-8.0)
[2025-03-07 11:04] LABS: Troponin-I High Sensitivity < 2.7 ng/L (<3.5-17.0)
[2025-03-07 11:16] VITALS: BP 136/84; PULSE 67; RESP 14; TEMP 36.6; O2SAT 99
[2025-03-07 11:49] VITALS: BP 136/84; PULSE 67; RESP 14; TEMP 36.6; O2SAT 99
== END 2025-03-07 11:50 | disposition home or self-care (01) ==
PROVIDERS: Physician Assistant Medical; Emergency Provider Emergency Medicine Emergency Medical Services; PCP Internal Medicine
DX: R07.9 Chest pain, unspecified (principal); R10.11 Right upper quadrant pain; E11.9 Type 2 diabetes mellitus without complications; G47.33 Obstructive sleep apnea (adult) (pediatric); K21.9 Gastro-esophageal reflux disease without esophagitis; I10 Essential (primary) hypertension; Z79.899 Other long term (current) drug therapy
CPT/HCPCS: 36415; 71046; 76705; 80048; 80076; 83690; 84484; 85025; 93005; 99284

== ENCOUNTER → 2025-03-07 07:05 | Outpatient (BNV) | payer SELFPAY | PROVIDERS: Emergency Provider Emergency Medicine Emergency Medical Services; PCP Internal Medicine; Visit Provider Internal Medicine Cardiovascular Disease | DX: R07.9 Chest pain, unspecified (principal) | CPT/HCPCS: 93010 ==

== ENCOUNTER → 2025-03-07 07:15 | Outpatient (BNV) | payer SELFPAY | PROVIDERS: Emergency Provider Emergency Medicine Emergency Medical Services; PCP Internal Medicine; Visit Provider Radiology Diagnostic Radiology | DX: R10.11 Right upper quadrant pain (principal); R07.9 Chest pain, unspecified | CPT/HCPCS: 71046; 76705 ==